=== PATIENT | male | born 1965 | race Hispanic/Latino ===

== ENCOUNTER 2018-01-24 06:04 | Emergency (ER) | payer BC, OTHER ==
[2018-01-24] MEDS ORDERED: COLCHICINE 0.6 MG TAB ONE ×2 (06:48→08:23)
[2018-01-24 06:54] LABS: BUN Blood Urea Nitrogen 14 mg/dL (6-20); Bicarbonate 27 mEq/L (21-31); Glomerular Filtration Rate > 90 mL/min (=/>90); Glucose Level 119 mg/dL (65-120); Sodium Level 139 mEq/L (135-145)
[2018-01-24 07:03] LABS: Absolute Lymphocytes (CBC) 2.1 K/uL (0.7-4.9); Absolute Monocytes 0.8 K/uL (0.1-1.3); Absolute Neutrophil 6.7 K/uL (1.8-8.0); Basophils % 0.4 % (0-1.3); Eosinophils % 1.1 % (0-4.4); Hematocrit 37.5 % (39.6-49.0); Lymphocytes % 21.4 % (15.3-44.8); MCH 29.4 pg (27.0-35.0); MCV 86.6 fL (80-100); MPV 11.1 fL (7.6-11.3); Monocytes % 8.6 % (3.3-12.3); RBC Red Blood Cell Count 4.33 M/uL (4.33-5.43)
[2018-01-24] MEDS ORDERED: INDOMETHACIN 25 MG CAP ONE (07:09)
--- NOTE | 2018-01-24 08:14 | ER ---
Nurse's Notes [facility] Name: Jabier Bright Age: 52 yrs Sex: Male : 1965 Arrival Date: 01/24/2018 Time: 06:07 Bed 7 Private MD: Diagnosis: Gout Presentation: 01/24 06:15 Presenting complaint: Patient states: "Yesterday I woke up with swelling on my elbow, ao but is was not bad and this morning it got worst. It getting red, swelling and painful.". Transition of care: patient was not received from another setting of care. Onset of symptoms was January 23, 2018 at 06:00. Care prior to arrival: None. 06:15 Method Of Arrival: Ambulatory ao 06:15 Acuity: GLENIS 4 ao Triage Assessment: :22 General: Appears in no apparent distress. comfortable, Behavior is calm, cooperative, ao appropriate for age. Pain: Complains of pain in right elbow. EENT: No signs and/or symptoms were reported regarding the EENT system. Neuro: Level of Consciousness is awake, alert, obeys commands, Oriented to person, place, time, Moves all extremities. Speech is normal, Facial symmetry appears normal. Cardiovascular: Capillary refill < 3 seconds Patient's skin is warm and dry. Respiratory: Airway is patent Respiratory effort is even, unlabored, Respiratory pattern is regular, symmetrical. GI: Abdomen is round. : No signs and/or symptoms were reported regarding the genitourinary system. Derm: Skin is normal, Skin temperature is warm. Musculoskeletal: Swelling present in right elbow. Injury Description: None reported. Historical: - Allergies: 06:21 No Known Allergies; ao - Home Meds: 06:21 lisinopril 10 mg Oral tab 1 tab once daily [Active]; ao - PMHx: 06:21 Hypertension; ao 06:25 Gout; ao - PSHx: 06:21 None; ao - Immunization history:: Adult Immunizations not up to date. - Social history:: Smoking status: Patient uses tobacco products, denies chronic smoking, but will smoke occasionally, Patient uses alcohol, Patient/guardian denies using street drugs. Screenin:22 Abuse screen: Denies threats or abuse. Denies injuries from another. Nutritional ao screening: No deficits noted. Tuberculosis screening: No symptoms or risk factors identified. Fall Risk None identified. Assessment: 06:36 General: See triage assessment. ao 07:20 Reassessment: Patient appears in no apparent distress at this time. No changes from sv previously documented assessment. Patient and/or family updated on plan of care and expected duration. Pain level reassessed. Patient is alert, oriented x 3, equal unlabored respirations, skin warm/dry/pink. Vital Signs: 06:18 BP 187 / 109; Pulse 97; Resp 18; Temp 98.0; Pulse Ox 95% on R/A; Weight 104.33 kg; ao Height 5 ft. 5 in. (165.10 cm) (R); Pain 3/10; 06:50 BP 168 / 104; Pulse 87; Resp 16; Pulse Ox 99% on R/A; Pain 3/10; ao 08:25 BP 176 / 89; Pulse 87; Resp 18; Temp 98.0; Pulse Ox 98% on R/A; Pain 3/10; sg 06:18 Body Mass Index 38.27 (104.33 kg, 165.10 cm) ao ED Course: 06:07 Patient arrived in ED. al2 06:16 Humble Ramos PA is PHCP. jr8 06:16 Francisco Holloway MD is Attending Physician. jr8 06:18 Triage completed. ao 06:18 Arm band placed on right wrist. Patient placed in an exam room, on a stretcher, on ao cardiac rehab nurse, on pulse oximetry, Patient notified of wait time. 06:22 Patient has correct armband on for positive identification. Pulse ox on. NIBP on. ao 06:31 Inserted saline lock: 20 gauge in left wrist, using aseptic technique. Blood collected. ao 07:08 Silva Simons, CONSUELO is Primary Nurse. tl1 07:56 Primary Nurse role handed off by Silva Simons RN sv 07:56 Marcelle Barrett RN is Primary Nurse. sv 08:25 No provider procedures requiring assistance completed. IV discontinued, intact, sg bleeding controlled, No redness/swelling at site. Pressure dressing applied. Administered Medications: 06:34 Drug: Colcrys 1.2 mg Route: PO; tl1 07:05 Follow up: Response: No adverse reaction; No change in condition tl1 06:52 Drug: Indomethacin 50 mg Route: PO; tl1 07:05 Follow up: Response: No adverse reaction; No change in condition tl1 08:07 Drug: Colcrys 0.6 mg Route: PO; sg Outcome: 08:14 Discharge ordered by MD. ramos 08:30 Patient left the ED. ss 10:25 Discharged to home ambulatory, with family. sg 10:25 Condition: good 10:25 Discharge instructions given to patient, Instructed on discharge instructions, follow up and referral plans. medication usage, safety practices, Demonstrated understanding of instructions, follow-up care, medications, Prescriptions given X 2. Signatures: Marcelle Barrett, RN CONSUELO Andrea Castillo RN RN sg Smirch, Shelby, RN RN ss Humble Ramos PA PA jr8 Silva Simons RN RN tl1 Ced Kelly RN RN Laurel Aguirre2 Corrections: (The following items were deleted from the chart) 06:20 06:18 BP 187 / 109; Pulse 97bpm; Resp 18bpm; Pulse Ox 95% RA; 104.33 kg; Height 5 ft. 5 ao in. Reported; BMI: 38.2; Pain 3/10; ao
--- NOTE | 2018-01-24 08:15 | EDPHYS ---
Physician Documentation [facility] Name: Jabier Bright Age: 52 yrs Sex: Male : 1965 Arrival Date: 01/24/2018 Time: 06:07 Bed 7 Private MD: ED Physician Francisco Holloway HPI: 01/24 06:34 This 52 yrs old Male presents to ER via Ambulatory with complaints of Elbow jr8 Injury, Arm Pain. 06:34 The patient or guardian complains of pain, swelling. The complaints affect the right jr8 elbow. Context: The problem was sustained at home. Onset: The symptoms/episode began/occurred acutely, yesterday. Treatment prior to arrival includes: no previous treatment. Modifying factors: The symptoms are alleviated by nothing. the symptoms are aggravated by movement. Associated signs and symptoms: The patient has no apparent associated signs or symptoms. Severity of symptoms: At their worst the symptoms were moderate, in the emergency department the symptoms are unchanged. It is unknown whether or not the patient has had similar symptoms in the past. The patient has not recently seen a physician. Patient stated that he elbow started to swell yesterday. Worse throughout night. Denies trauma to elbow. History of gout in past . Historical: - Allergies: 06:21 No Known Allergies; ao - Home Meds: 06:21 lisinopril 10 mg Oral tab 1 tab once daily [Active]; ao - PMHx: 06:21 Hypertension; ao 06:25 Gout; ao - PSHx: 06:21 None; ao - Immunization history:: Adult Immunizations not up to date. - Social history:: Smoking status: Patient uses tobacco products, denies chronic smoking, but will smoke occasionally, Patient uses alcohol, Patient/guardian denies using street drugs. ROS: 06:34 Eyes: Negative for injury, pain, redness, and discharge, ENT: Negative for injury, jr8 pain, and discharge, Neck: Negative for injury, pain, and swelling, Cardiovascular: Negative for chest pain, palpitations, and edema, Respiratory: Negative for shortness of breath, cough, wheezing, and pleuritic chest pain, Abdomen/GI: Negative for abdominal pain, nausea, vomiting, diarrhea, and constipation, Back: Negative for injury and pain, Skin: Negative for injury, rash, and discoloration, Neuro: Negative for headache, weakness, numbness, tingling, and seizure. 06:34 MS/extremity: Positive for erythema, pain, swelling, warmth, of the right elbow. Exam: 06:34 Cardiovascular: Regular rate and rhythm with a normal S1 and S2. No gallops, murmurs, jr8 or rubs. Normal PMI, no JVD. No pulse deficits. Respiratory: Lungs have equal breath sounds bilaterally, clear to auscultation and percussion. No rales, rhonchi or wheezes noted. No increased work of breathing, no retractions or nasal flaring. Skin: Warm, dry with normal turgor. Normal color with no rashes, no lesions, and no evidence of cellulitis. Neuro: Awake and alert, GCS 15, oriented to person, place, time, and situation. Cranial nerves II-XII grossly intact. Motor strength 5/5 in all extremities. Sensory grossly intact. Cerebellar exam normal. Normal gait. 06:34 Musculoskeletal/extremity: Extremities: grossly normal except: noted in the right elbow: Patient has swelling with mild erythema and warmth to right elbow. Can extend to almost 180 degrees. Can flex to about 45 degrees. Mild tenderness to elbow , Circulation is intact in all extremities. Sensation intact. Vital Signs: 06:18 BP 187 / 109; Pulse 97; Resp 18; Temp 98.0; Pulse Ox 95% on R/A; Weight 104.33 kg; ao Height 5 ft. 5 in. (165.10 cm) (R); Pain 3/10; 06:50 BP 168 / 104; Pulse 87; Resp 16; Pulse Ox 99% on R/A; Pain 3/10; ao 08:25 BP 176 / 89; Pulse 87; Resp 18; Temp 98.0; Pulse Ox 98% on R/A; Pain 3/10; sg 06:18 Body Mass Index 38.27 (104.33 kg, 165.10 cm) ao MDM: 06:16 Patient medically screened. 8 08:13 Data reviewed: vital signs, nurses notes, lab test result(s), and as a result, I will jr8 discharge patient. Data interpreted: Pulse oximetry: on room air is 99 %. Interpretation: normal. Counseling: I had a detailed discussion with the patient and/or guardian regarding: the historical points, exam findings, and any diagnostic results supporting the discharge/admit diagnosis, the presence of at least one elevated blood pressure reading (>120/80) during this emergency department visit, lab results, the need for outpatient follow up, a family practitioner, to return to the emergency department if symptoms worsen or persist or if there are any questions or concerns that arise at home. ED course: Patient feeling better. Pain decreased. More ROM in elbow. To f/u with PCP. Will send home on medication . 01/24 06:23 Order name: CBC with Diff jr8 01/24 06:23 Order name: Basic Metabolic Panel jr8 01/24 06:54 Order name: Basic Metabolic Panel; Complete Time: 06:59 EDMS 01/24 07:03 Order name: CBC with Automated Diff; Complete Time: 07:04 EDMS 01/24 06:23 Order name: IV; Complete Time: 06:30 jr8 Administered Medications: 06:34 Drug: Colcrys 1.2 mg Route: PO; tl1 07:05 Follow up: Response: No adverse reaction; No change in condition tl1 06:52 Drug: Indomethacin 50 mg Route: PO; tl1 07:05 Follow up: Response: No adverse reaction; No change in condition tl1 08:07 Drug: Colcrys 0.6 mg Route: PO; sg Disposition: 01/24/18 08:14 Discharged to Home. Impression: Gout. - Condition is Stable. - Discharge Instructions: Gout. - Prescriptions for indomethacin 50 mg Oral capsule - take 1 capsule by ORAL route 3 times per day for 5 days to stop as soon as swelling and pain subsides; 15 capsule. Colcrys 0.6 mg Oral tablet - take 1 tablet by ORAL route 2 times per day for 3 days; 6 tablet. - Work release form, Medication Reconciliation Form, Thank You Letter, Antibiotic Education, Prescription Opioid Use form. - Follow up: Private Physician; When: 2 - 3 days; Reason: Recheck today's complaints, Continuance of care, Re-evaluation by your physician. - Problem is new. - Symptoms have improved. - Notes: Do not start Colcrys until tomorrow morning 01/25/18 Drink lots of water Eat with Indomethacin Addendum: 01/28/2018 07:02 Co-signature as Attending Physician, Francisco Holloway MD I agree with the assessment and k dr plan of care. Signatures: Dispatcher [employer] EDVT Castillo, Andrea, RN RN sg Francisco Holloway MD MD [facility] Magaly Hawkins RN RN ss Humble Ramos PA PA 8 Silva Simons RN RN tl1 Ced Kelly RN RN ao
== END 2018-01-24 08:30 | disposition home or self-care (01) ==
LOC: ER 06:04
DX: Z72.0 Tobacco use; M10.9 Gout, unspecified; I10 Essential (primary) hypertension
CPT/HCPCS: 36415; 80048; 85025; 99284

== ENCOUNTER 2022-02-21 06:04 | Emergency (ER) | payer OTHER ==
[2022-02-21] MEDS ORDERED: ONDANSETRON 4 MG/2 ML VIAL ONE (06:35)
[2022-02-21] MEDS ORDERED: MORPHINE 4 MG/ML SYR ONE (06:35)
[2022-02-21] MEDS ORDERED: FAMOTIDINE 20 MG/2 ML VIAL IV ONE (06:35)
[2022-02-21 06:58] LABS: Absolute Lymphocytes (CBC) 2.6 K/uL (0.7-4.9); Hematocrit 39.2 % (39.6-49.0); Lymphocytes % 22.4 % (15.3-44.8); MPV 9.4 fL (7.6-11.3); RBC Red Blood Cell Count 4.39 M/uL (4.33-5.43)
[2022-02-21 07:13] LABS: Albumin 3.1 g/dL (3.4-5.0); Bilirubin Total 0.4 mg/dL (0.2-1.0); Potassium 3.4 mmol/L (3.5-5.1); Protein, Total 6.6 g/dL (6.4-8.2)
--- NOTE | 2022-02-21 07:36 | RAD REPORT ---
EXAM DESCRIPTION: CT - Angio Aorta For Dissection - 02/21/2022 7:13 am CLINICAL HISTORY: abdominal pain COMPARISON: None. TECHNIQUE: Dynamically enhanced 3 mm thick images of the chest, abdomen, and upper pelvis were obtai katrin during administration of approximately 150mL Isovue 370 IV contrast. Sagittal and coronal reconst ruction images were generated using MIP and reviewed. Exam utilizes a protocol to evaluate entire cou rse of the aorta. All CT scans are performed using dose optimization technique as appropriate and may include automated exposure control or mA/KV adjustment according to patient size. FINDINGS: Aorta is normal in diameter with no dissection or other acute aortic findings. Reconstruct ion images show no significant findings. Pulmonary arteries are normal as well. No cardiomegaly, pericardial thickening or pericardial effusio n. No mass or infiltrate in the lung parenchyma. No pleural thickening, pleural effusion or pneumothorax . No abnormal mediastinal or hilar mass or lymphadenopathy seen. No chest wall mass or abnormal axillar y lymphadenopathy. Celiac, SMA and renal arteries show no suspicious findings. Solid abdominal viscera and bowel show no significant findings. Liver appears borderline fatty infiltrated. A 22 millimeter exophytic homogene ous low-attenuation mass (31 HU) lower pole left kidney is most likely an incidental cyst. No mass o r abnormal lymphadenopathy. No free air, free fluid or inflammatory stranding. No urinary bladder abn ormality. Patient has an incidental fat only 4 centimeter diameter periumbilical hernia. No acute bone finding. Minimal endplate spurring changes are seen in the thoracic spine. Moderate deg enerative disc disease present at L5-S1. IMPRESSION: Negative CT scan of the aorta. No acute or significant CT chest finding. No acute CT abdomen or pelvis finding. Patient has a homogeneous low-density but non simple cyst exop hytic mass lower pole left kidney. This is almost certainly a benign cyst but can be monitored with o utpatient follow-up sonography or comparison to any prior CT imaging that may have been performed. Moderate severity L5-S1 level degenerative disc disease.
[2022-02-21] MEDS ORDERED: lisinopriL 10 MG TAB ONE (08:02)
[2022-02-21] MEDS ORDERED: MAGNES/ALUMIN/SIMET 30ML UCUP ONE (08:28)
[2022-02-21] MEDS ORDERED: LIDOCAINE VISCOUS 2% SOLN 15 ML UDC ONE (08:28)
--- NOTE | 2022-02-21 08:56 | EDPHYS ---
Physician Documentation [facility] Name: Jabier Bright Age: 56 yrs Sex: Male : 1965 Arrival Date: 02/21/2022 Time: 06:08 Bed 4 Private MD: ED Physician Tian Ac HPI: 02/21 07:46 This 56 yrs old Male presents to ER via Ambulatory with complaints of rn Abdominal Pain. 07:46 The patient presents with abdominal pain in the epigastric area. Onset: The rn symptoms/episode began/occurred yesterday. The symptoms do not radiate. Associated signs and symptoms: Pertinent positives: nausea, Pertinent negatives: blood in stools, chest pain, constipation, diarrhea, dysuria, fever, shortness of breath, vomiting blood. The symptoms are described as achy. Modifying factors: The symptoms are alleviated by nothing, the symptoms are aggravated by touching the area. Severity of pain: At its worst the pain was moderate in the emergency department the pain has improved. The patient has not experienced similar symptoms in the past. The patient has not recently seen a physician. Pt reports upper abd pain, assoc with nausea, began yesterday, got worse this AM Denies chest pain/sob/cough/vomiting/diarrhea. No blood in stool. Reports hasn't taken his lisinopril this AM because didn't eat. No headache. No focal neuro complaint.. Historical: - Allergies: 06:15 No Known Allergies; lg3 - Home Meds: 06:15 lisinopril 10 mg Oral tab 1 tab once daily [Active]; lg3 - PMHx: 06:15 Gout; Hypertension; lg3 - PSHx: 06:15 None; lg3 - Immunization history:: Client reports receiving the 2nd dose of the Covid vaccine, moderna X3. - Social history:: Smoking status: Patient reports the use of cigarette tobacco products, denies chronic smoking, but will smoke occasionally, Patient uses alcohol, occasionally. only on a social basis. - Family history:: not pertinent. - Hospitalizations: : No recent hospitalization is reported. ROS: 07:46 Constitutional: Negative for fever, chills, and weight loss, Eyes: Negative for injury, rn pain, redness, and discharge, Neck: Negative for injury, pain, and swelling, Cardiovascular: Negative for chest pain, palpitations, and edema, Respiratory: Negative for shortness of breath, cough, wheezing, and pleuritic chest pain, Abdomen/GI: + epigastric abd pain and nausea Back: Negative for injury and pain, : Negative for injury, bleeding, discharge, and swelling, MS/Extremity: Negative for injury and deformity, Skin: Negative for injury, rash, and discoloration, Neuro: Negative for headache, weakness, numbness, tingling, and seizure. Exam: 07:46 Constitutional: This is a well developed, well nourished patient who is awake, alert, rn and in no acute distress. Head/Face: Normocephalic, atraumatic. Eyes: Periorbital areas with no swelling, redness, or edema. Cardiovascular: Regular rate and rhythm. No pulse deficits. Respiratory: No increased work of breathing, no retractions or nasal flaring. Abdomen/GI: Soft, non-tender Skin: Warm, dry MS/ Extremity: Pulses equal, no cyanosis. Neuro: Awake and alert, GCS 15 08:03 ECG was reviewed by the Attending Physician. rn Vital Signs: 06:13 BP 219 / 111; Pulse 68; Resp 17 S; Temp 97.7(O); Pulse Ox 99% on R/A; Weight 100.7 kg lg3 (R); Height 5 ft. 6 in. (167.64 cm) (R); Pain 8/10; 07:29 BP 205 / 109; Pulse 60; Resp 18 S; Pulse Ox 99% on R/A; jd3 08:23 BP 208 / 94; Pulse 61; Resp 17 S; Pulse Ox 99% on R/A; jd3 08:51 BP 169 / 93; Pulse 67; Resp 18 S; Pulse Ox 98% on R/A; jd3 06:13 Body Mass Index 35.83 (100.70 kg, 167.64 cm) lg3 MDM: 07:14 Patient medically screened. rn 08:54 Differential diagnosis: AAA, bowel obstruction, cholecystitis, Cholelithiasis, rn diverticulitis, gastritis, gastroesophageal reflux disease, non-specific abd pain, pancreatitis, Peptic Ulcer Disease, Perf. Duodenal Ulcer, Perf. Gastric Ulcer. Data reviewed: vital signs, nurses notes, lab test result(s), EKG, radiologic studies, CT scan, and as a result, I will discharge patient. Counseling: I had a detailed discussion with the patient and/or guardian regarding: the historical points, exam findings, and any diagnostic results supporting the discharge/admit diagnosis, lab results, radiology results, the need for outpatient follow up, to return to the emergency department if symptoms worsen or persist or if there are any questions or concerns that arise at home. Response to treatment: the patient's symptoms have resolved after treatment, and as a result, I will discharge patient. Special discussion: Based on the patient's Hx, exam, and Dx evaluation, there is no indication for emergent surgery or inpatient Tx. It is understood by the patient/guardian that if the Sx's persist or worsen they need to return immediately for re-evaluation. I discussed with the patient/guardian in detail that at this point there is no indication for admission to the hospital. It is understood, however, that if the symptoms persist or worsen the patient needs to return immediately for re-evaluation. ED course: NO acute findings on CT imaging, pain resolved since arrival, BP improved with home lisinopril given here. Stable vitals. Will dc home with antacids and return precautions. ECG normal. Trop normal. . 08:56 Special discussion: I discussed with the patient the need to follow-up with the rn PCP/specialist for the noted incidental finding on X-ray/CT scanning. 02/21 06:25 Order name: CBC with Diff; Complete Time: 07:40 [facility] 02/21 06:25 Order name: CMP; Complete Time: 07:40 [facility] 02/21 06:25 Order name: Lipase; Complete Time: 07:40 [facility] 02/21 07:40 Order name: Troponin High Sensitivity; Complete Time: 08:03 rn 02/21 07:54 Order name: CREATININE WHOLE BLOOD; Complete Time: 08:03 EDNJ 02/21 06:25 Order name: IV Saline Lock; Complete Time: 06:46 [facility] 02/21 06:35 Order name: Angio Aorta For Dissection; Complete Time: 07:40 EDNJ 02/21 07:40 Order name: EKG; Complete Time: 07:41 rn 02/21 06:25 Order name: Labs collected and sent; Complete Time: 06:46 [facility] 02/21 07:40 Order name: EKG - Nurse/Tech; Complete Time: 07:56 rn EC:03 Rate is 60 beats/min. Rhythm is regular. QRS [place] is Normal. IN interval is normal. QRS rn interval is normal. QT interval is normal. No Q waves. T waves are Normal. No ST changes noted. Clinical impression: Normal ECG. Interpreted by me. Reviewed by me. Administered Medications: 06:45 Drug: morphine 4 mg Route: IVP; Site: left antecubital; vc1 07:45 Follow up: Response: No adverse reaction; RASS: Alert and Calm (0) jd3 06:45 Drug: Zofran (Ondansetron) 4 mg Route: IVP; Site: left antecubital; vc1 07:45 Follow up: Response: No adverse reaction jd3 06:45 Drug: Pepcid (famotidine) 20 mg Route: IVP; Site: left antecubital; vc1 07:45 Follow up: Response: No adverse reaction jd3 08:00 Drug: Lisinopril 10 mg Route: PO; jd3 08:31 Follow up: Response: No adverse reaction jd3 08:30 Drug: GI Cocktail without - (Maalox Suspension 30 ml, Lidocaine Liquid 2 % 15 jd3 ml) Route: PO; 09:20 Follow up: Response: No adverse reaction jd3 Disposition Summary: 02/21/22 08:56 Discharge Ordered Location: Home rn Problem: new rn Symptoms: have improved rn Condition: Stable rn Diagnosis - Upper abdominal pain, unspecified rn - Essential (primary) hypertension rn Followup: rn - With: Dwayne Dang MD - When: As needed - Reason: Recheck today's complaints, Re-evaluation by your physician Discharge Instructions: - Discharge Summary Sheet rn - Abdominal Pain, Adult rn - Hypertension, Adult rn Forms: - Medication Reconciliation Form rn - Thank You Letter rn - Antibiotic help desk internship - Prescription Opioid Use rn - Work release form jd3 Prescriptions: - Protonix 40 mg Oral Tablet - take 1 tablet by ORAL route once daily; 30 tablet; Refills: 0, Product rn Selection Permitted Signatures: Dispatcher [employer] EDFrancisco Graves MD MD kdr Nieto, Roman, MD MD rn Davies, Jonathon, RN RN jd3 Luanne Ramsey, RN RN lg3 Bri Richard RN RN vc1 Corrections: (The following items were deleted from the chart) 06:35 06:28 Chest Angio+CT.RAD.BRZ ordered. EDMS EDMS
--- NOTE | 2022-02-21 08:56 | ER ---
Nurse's Notes [facility] Name: Jabier Bright Age: 56 yrs Sex: Male : 1965 Arrival Date: 02/21/2022 Time: 06:08 Bed 4 Private MD: Diagnosis: Upper abdominal pain, unspecified;Essential (primary) hypertension Presentation: 02/21 06:13 Chief complaint: Patient states: upper abdominal pain starting last night and getting lg3 worse. nausea and dry heaving but not vomiting at this point. Coronavirus screen: Client denies travel out of the [place] in the last 14 days. At this time, the client does not indicate any symptoms associated with coronavirus-19. Ebola Screen: No symptoms or risks identified at this time. Initial Sepsis Screen: Does the patient meet any 2 criteria? No. Patient's initial sepsis screen is negative. Does the patient have a suspected source of infection? No. Patient's initial sepsis screen is negative. Risk Assessment: Do you want to hurt yourself or someone else? Patient reports no desire to harm self or others. Onset of symptoms was February 20, 2022. 06:13 Method Of Arrival: Ambulatory lg3 06:13 Acuity: GLENIS 3 lg3 Triage Assessment: 06:15 General: Appears in no apparent distress. uncomfortable, Behavior is calm, cooperative. lg3 Pain: Complains of pain in epigastric area. EENT: No deficits noted. No signs and/or symptoms were reported regarding the EENT system. Neuro: No deficits noted. Level of Consciousness is awake, alert, obeys commands, Oriented to person, place, time, situation. Cardiovascular: No deficits noted. Denies chest pain, shortness of breath. Respiratory: No deficits noted. Airway is patent Trachea midline Respiratory effort is even, unlabored, Respiratory pattern is regular, symmetrical. GI: Reports upper abdominal pain, epigastric pain, nausea. : No deficits noted. No signs and/or symptoms were reported regarding the genitourinary system. Derm: No deficits noted. No signs and/or symptoms reported regarding the dermatologic system. Skin is intact, is healthy with good turgor, Skin is diaphoretic, Skin is pink, warm \T\ dry. Musculoskeletal: No deficits noted. No signs and/or symptoms reported regarding the musculoskeletal system. Circulation, motion, and sensation intact. Range of motion: intact in all extremities. Historical: - Allergies: 06:15 No Known Allergies; lg3 - Home Meds: 06:15 lisinopril 10 mg Oral tab 1 tab once daily [Active]; lg3 - PMHx: 06:15 Gout; Hypertension; lg3 - PSHx: 06:15 None; lg3 - Immunization history:: Client reports receiving the 2nd dose of the Covid vaccine, moderna X3. - Social history:: Smoking status: Patient reports the use of cigarette tobacco products, denies chronic smoking, but will smoke occasionally, Patient uses alcohol, occasionally. only on a social basis. - Family history:: not pertinent. - Hospitalizations: : No recent hospitalization is reported. Screenin:46 Abuse screen: Denies threats or abuse. Nutritional screening: No deficits noted. ll3 Tuberculosis screening: No symptoms or risk factors identified. Fall Risk No fall in past 12 months (0 pts). No secondary diagnosis (0 pts). IV access (20 points). Ambulatory Aid- None/Bed Rest/Nurse Assist (0 pts). Gait- Normal/Bed Rest/Wheelchair (0 pts) Mental Status- Oriented to own ability (0 pts). Total Gomez Fall Scale indicates No Risk (0-24 pts). Assessment: 06:46 General: Appears uncomfortable, Behavior is calm, cooperative. Pain: Complains of pain ll3 in chest and epigastric area Pain currently is 10 out of 10 on a pain scale. Pain began 1 day ago. Is continuous. Neuro: Level of Consciousness is awake, alert, obeys commands, Oriented to person, place, time, situation. Cardiovascular: Patient's skin is warm and dry. Rhythm is sinus bradycardia. Respiratory: Respiratory effort is even, unlabored, Respiratory pattern is regular, symmetrical. Derm: Skin is diaphoretic, Skin is normal. 07:26 General: Appears in no apparent distress. comfortable, Behavior is calm, cooperative, jd3 appropriate for age, Reports stomach pain feeling better. Pain: Denies pain. Neuro: Level of Consciousness is awake, alert, obeys commands, Oriented to person, place, time, situation. Cardiovascular: Denies chest pain, Capillary refill < 3 seconds Patient's skin is warm and dry. Rhythm is regular. Respiratory: Airway is patent Respiratory effort is even, unlabored, Respiratory pattern is regular, symmetrical, Denies cough, shortness of breath. GI: Abdomen is round non-distended, Abd is soft and non tender X 4 quads. Reports upper abdominal pain this morning. relieved after being medicated. : No signs and/or symptoms were reported regarding the genitourinary system. EENT: No signs and/or symptoms were reported regarding the EENT system. Derm: Skin is intact, Skin is dry, Skin is normal, Skin temperature is warm. Musculoskeletal: Circulation, motion, and sensation intact. Range of motion: intact in all extremities. 08:22 Reassessment: Patient appears in no apparent distress at this time. Patient and/or jd3 family updated on plan of care and expected duration. Pain level reassessed. Patient is alert, oriented x 3, equal unlabored respirations, skin warm/dry/pink. Patient states feeling better. 08:51 Reassessment: Patient appears in no apparent distress at this time. Patient and/or jd3 family updated on plan of care and expected duration. Pain level reassessed. Patient is alert, oriented x 3, equal unlabored respirations, skin warm/dry/pink. Patient denies pain at this time. Patient states feeling better. 09:18 Reassessment: Patient appears in no apparent distress at this time. Patient and/or jd3 family updated on plan of care and expected duration. Pain level reassessed. Patient is alert, oriented x 3, equal unlabored respirations, skin warm/dry/pink. reported understanding of discharge instructions, even and steady gait upon discharge. Vital Signs: 06:13 BP 219 / 111; Pulse 68; Resp 17 S; Temp 97.7(O); Pulse Ox 99% on R/A; Weight 100.7 kg lg3 (R); Height 5 ft. 6 in. (167.64 cm) (R); Pain 8/10; 07:29 BP 205 / 109; Pulse 60; Resp 18 S; Pulse Ox 99% on R/A; jd3 08:23 BP 208 / 94; Pulse 61; Resp 17 S; Pulse Ox 99% on R/A; jd3 08:51 BP 169 / 93; Pulse 67; Resp 18 S; Pulse Ox 98% on R/A; jd3 06:13 Body Mass Index 35.83 (100.70 kg, 167.64 cm) lg3 ED Course: 06:08 Patient arrived in ED. ag3 06:15 Triage completed. lg3 06:15 Arm band placed on right wrist. lg3 06:24 Francisco Holloway MD is Attending Physician. kdr 06:46 Collins Fernández, RN is Primary Nurse. ll3 06:46 Patient has correct armband on for positive identification. Bed in low position. Call ll3 light in reach. Side rails up X 1. Adult w/ patient. business info consultant on. Pulse ox on. NIBP on. 06:46 Inserted saline lock: 22 gauge in left antecubital area, using aseptic technique. Blood vc1 collected. 07:14 Attending Physician role handed off by Francisco Holloway MD rn 07:14 Tian Ac MD is Attending Physician. rn 07:15 Angio Aorta For Dissection In Process Unspecified. EDMS 07:26 Primary Nurse role handed off by Collins Fernández RN jd3 07:26 Florian Monreal RN is Primary Nurse. jd3 08:56 Dwayne Dang MD is Referral Physician. rn 09:18 No provider procedures requiring assistance completed. IV discontinued, intact, jd3 bleeding controlled, No redness/swelling at site. Pressure dressing applied. Administered Medications: 06:45 Drug: morphine 4 mg Route: IVP; Site: left antecubital; vc1 07:45 Follow up: Response: No adverse reaction; RASS: Alert and Calm (0) jd3 06:45 Drug: Zofran (Ondansetron) 4 mg Route: IVP; Site: left antecubital; vc1 07:45 Follow up: Response: No adverse reaction jd3 06:45 Drug: Pepcid (famotidine) 20 mg Route: IVP; Site: left antecubital; vc1 07:45 Follow up: Response: No adverse reaction jd3 08:00 Drug: Lisinopril 10 mg Route: PO; jd3 08:31 Follow up: Response: No adverse reaction jd3 08:30 Drug: GI Cocktail without - (Maalox Suspension 30 ml, Lidocaine Liquid 2 % 15 jd3 ml) Route: PO; 09:20 Follow up: Response: No adverse reaction jd3 Outcome: 08:56 Discharge ordered by . rn 09:19 Discharged to home ambulatory, with family. jd3 09:19 Condition: stable 09:19 Discharge instructions given to patient, family, Instructed on discharge instructions, follow up and referral plans. medication usage, Demonstrated understanding of instructions, follow-up care, medications, Prescriptions given X 1. 09:19 Patient left the ED. jd3 Signatures: Dispatcher [employer] EDMS Francisco Holloway MD MD kdr Nieto, Roman, MD MD rn Davies, Jonathon, RN RN jd3 Keke Cisneros3 Luanne Ramsey RN RN lg3 Collins Fernández RN RN ll3 Bri Richard RN RN vc1
[2022-02-21 09:26] VITALS: TEMP 97.7
[2022-02-21 09:30] VITALS: BP 169/93; O2SAT 98
--- NOTE | 2022-02-22 09:36 | EKG ---
Test Date: 2022-02-21 Test Time: 06:26:01 Connie Scratcher: RE MEASUREMENT RESULTS: Intervals: Rate: 52 MD: 158 QRSD: 78 QT: 432 QTc: 401 [place]: P: 50 MD: 158 QRS: 41 T: 56 INTERPRETIVE STATEMENTS: Sinus bradycardia Otherwise normal ECG Compared to ECG 02/21/2022 06:24:43 No significant changes Electronically Signed On 02-22-22 09:32:07 CDT by Davie Orta
--- NOTE | 2022-02-23 13:01 | EKG ---
Test Date: 2022-02-21 Test Time: 07:52:06 Trim Mounter: JANETTE MEASUREMENT RESULTS: Intervals: Rate: 60 VT: 158 QRSD: 80 QT: 410 QTc: 410 Page: P: 57 VT: 158 QRS: 44 T: 43 INTERPRETIVE STATEMENTS: Normal sinus rhythm with sinus arrhythmia Normal ECG Electronically Signed On 02-23-22 12:57:54 CDT by Davie Orta
== END 2022-02-21 09:19 | disposition home or self-care (01) ==
LOC: ER 06:04
DX: R10.10 Upper abdominal pain, unspecified (principal); I10 Essential (primary) hypertension
CPT/HCPCS: 93005 ×3; 85025; 36415; 82565; 84484; 83690; 80053; 71275; 74175; 96375; 96374; 99284; Q9967; J2405; J3490

== ENCOUNTER 2022-07-11 15:16 | Emergency (ER) | payer OTHER ==
--- OUTSIDE RECORDS SUMMARY | 2022-07-11 15:18 | XMS REPORT | Continuity of Care Document ---
:1965 Author Organization [facility] t Address [address] [place] [address] Care Team Providers Name Role Phone Unavailable Unavailable Unavailable Problems This patient has no known problems. Allergies, Adverse Reactions, Alerts This patient has no known allergies or adverse reactions. Medications This patient has no known medications. Procedures This patient has no known procedures. Results Test Description Test Time Test Comments Results Result Comments Source OCCULT BLD,FECAL,IMMUNOASSAY DIAG 2022-05-25 16:08:46 Test Item Value Reference Range Interpretation Comme nts OCCULT BLD, FECAL (test code NEGATIVE NEGATIVE Note: Specimen received in an = [id number]) collect ion system. Results and details of analysis reviewed by VALERIE REYNAGA M.D. UNLESS OTHERWISE INDIC ATED, ALL TESTING PERFORMED [facility], [place] [address] 4 PURCHASING ANALYST: YAYA DIOP M.D. CLIA NUMBER [id number] CAP ACCREDITATION N O. [id number] COMPREHENSIVE METABOLIC [id number] 02:04:03 Test Item Value Reference Range Interpretation Comments GLUCOSE (test code = 121 MG/DL 70-99 H 2216) BUN (test code = 22 MG/DL 6-20 H 2207) CREATININE (test 1.46 MG/DL 0.80-1.40 H code = 2214) eGFR (2020 CKD-EPI) 55 ML/MIN/1.73 >60 L (test code = 18428) CALC BUN/CREAT (test 15 RATIO 6-28 code = 2235) SODIUM (test code = 142 MEQ/L [phone]) POTASSIUM (test code 4.4 MEQ/L 3.5-5.4 = 2228) CHLORIDE (test code 106 MEQ/L 95-107 = 2215) CARBON DIOXIDE (test 20 MEQ/L 19-31 code = 2206) CALCIUM (test code = 9.4 MG/DL 8.5-10.5 2208) PROTEIN, TOTAL (test 7.0 G/DL 6.1-8.3 code = 2229) ALBUMIN (test code = 4.3 G/DL 3.5-5.2 2200) CALC GLOBULIN (test 2.7 G/DL 1.9-3.7 code = 2240) CALC A/G RATIO (test 1.6 RATIO 1.0-2.6 code = 2234) BILIRUBIN, TOTAL 0.5 MG/DL See_Comment [Automated message] (test code = 2207) The syste m which generated this result transmit tru reference range : <=1.2. The refe rence range was not u sed to interpret th is result as normal/abnormal . ALKALINE PHOSPHATASE 74 U/L 40-123 (test code = 2204) AST (test code = 33 U/L 9-50 2217) ALT (test code = 55 U/L 5-50 H 2218) LIPID [id number] 02:04:03 Test Item Value Reference Range Interpretation Comments CHOLESTEROL (test 180 MG/DL <200 code = 2210) TRIGLYCERIDES (test 277 MG/DL <150 H code = 2232) HDL CHOLESTEROL (test 56 MG/DL >39 code = 2220) CALC LDL CHOL (test 88 MG/DL <100 NOTE: C ALCULATED LDL code = 2237) IS BASED ON JOVANNY-MCFARLANE METHOD WHICHINCLUDES ADJUSTABLE TRIGLYCERIDE:VL DL CHOLESTEROL RAT IO.THIS FACTOR VARIES B Y MEASURED TRIGLY CERIDE AND NON-HDLCHOL ESTEROL CONCENTRATIONS WITH INCREASED CALCU LATED LDL SEENIN HIGH ER TRIGLYCERIDE OR LOWER NON-HDL SPECIME NS. FOR MOREINFORMATION , SEE CLIENT ANNOUNCE MENT AT [email or web address] RISK RATIO LDL/HDL 1.57 RATIO <3.55 UNLESS OTHERWISE (test code = 2238) INDICATED , ALL TESTING PERFORMED [facility], [address] [place] [place] [address] [facility] DIRECTOR: YAYA DIOP M.D. CLIA NUMBER [id number] CAP ACCREDITATION N O. [id number]
[2022-07-11 15:52] LABS: Absolute Lymphocytes (CBC) 1.4 K/uL (0.7-4.9); Hematocrit 36.1 % (39.6-49.0); Lymphocytes % 18.6 % (15.3-44.8); MCV 91.8 fL (80-100); MPV 10.2 fL (7.6-11.3); RBC Red Blood Cell Count 3.93 M/uL (4.33-5.43)
[2022-07-11 16:03] LABS: Protime INR 1.05
[2022-07-11 16:13] LABS: Magnesium 2.2 mg/dL (1.8-2.4); Potassium 3.6 mmol/L (3.5-5.1); Troponin High Sensitivity 4.8 pg/mL (<58.9)
[2022-07-11] MEDS ORDERED: ACETAMINOPHEN 500 MG TAB ONE (18:02)
--- NOTE | 2022-07-11 18:24 | RAD REPORT ---
EXAM DESCRIPTION: RAD - Knee Right 3 View - 07/11/2022 6:17 pm CLINICAL HISTORY: Right knee pain FINDINGS: No fracture or dislocation is seen. Moderate narrowing involves the medial compartment with small osteophytes. Patellofemoral compartment also involved
--- NOTE | 2022-07-11 18:25 | RAD REPORT ---
EXAM DESCRIPTION: RAD - Knee Left 3 View - 07/11/2022 6:17 pm CLINICAL HISTORY: Left knee pain FINDINGS: No fracture or dislocation is seen. Moderate to marked osteoarthritis medial compartment consisting joint space narrowing and osteophytes
--- NOTE | 2022-07-11 18:31 | ER ---
Nurse's Notes [facility] Name: Jabier Bright Age: 56 yrs Sex: Male : 1965 Arrival Date: 07/11/2022 Time: 15:17 Bed Treatment Private MD: Diagnosis: Pain in left knee;Pain in right knee;Hypertensive heart disease without heart failure Presentation: 07/11 15:17 Chief complaint: EMS states: c/o nausea whiel at work, took his BP and it was elevated, iw pt no longer nauseated , denies h/a, dizziness or blurry vision , last BP was 160/92, has hx of hypertension and takes lisinopril. Onset of symptoms was July 11, 2022. 15:17 Method Of Arrival: EMS: [facility] iw 15:17 Acuity: GLENIS 3 iw 15:27 Coronavirus screen: At this time, the client does not indicate any symptoms associated aa5 with coronavirus-19. Ebola Screen: No symptoms or risks identified at this time. Initial Sepsis Screen: Does the patient meet any 2 criteria? No. Patient's initial sepsis screen is negative. Does the patient have a suspected source of infection? No. Patient's initial sepsis screen is negative. Risk Assessment: Do you want to hurt yourself or someone else? Patient reports no desire to harm self or others. Historical: - Allergies: 15:19 No Known Allergies; iw - Home Meds: 15:19 lisinopril 10 mg Oral tab 1 tab once daily [Active]; iw - PMHx: 15:19 Gout; Hypertension; iw - Immunization history:: Adult Immunizations unknown. - Social history:: Smoking status: unknown. Screenin:55 Abuse screen: Denies threats or abuse. Nutritional screening: No deficits noted. em6 Tuberculosis screening: No symptoms or risk factors identified. Fall Risk IV access (20 points). Mental Status- Oriented to own ability (0 pts). Total Gomez Fall Scale indicates No Risk (0-24 pts). Assessment: 17:55 General: Appears in no apparent distress. comfortable, Behavior is calm, cooperative. em6 Pain: Complains of pain in left knee and right knee Pain does not radiate. Pain currently is 10 out of 10 on a pain scale. Quality of pain is described as throbbing, stinging. Neuro: Henry Agitation-Sedation Scale (RASS): 0 - Alert and Calm Level of Consciousness is awake, alert, obeys commands, Oriented to person, place, time, situation. Neuro: Denies headache. Cardiovascular: Heart tones present Patient's skin is warm and dry. Respiratory: Airway is patent Respiratory effort is even, unlabored, Respiratory pattern is regular, symmetrical. GI: No signs and/or symptoms were reported involving the gastrointestinal system. GI: No signs and/or symptoms were reported involving the gastrointestinal system. : No signs and/or symptoms were reported regarding the genitourinary system. EENT: No signs and/or symptoms were reported regarding the EENT system. Derm: No signs and/or symptoms reported regarding the dermatologic system. Musculoskeletal: Circulation, motion, and sensation intact. Range of motion: intact in all extremities. Vital Signs: 15:27 BP 176 / 97; Pulse 91; Resp 18 S; Temp 99.0(TE); Pulse Ox 97% on R/A; Weight 104.33 kg aa5 (R); Height 5 ft. 6 in. (167.64 cm) (R); 18:04 BP 177 / 103; Pulse 74; Resp 18; Pulse Ox 100% on R/A; em6 15:27 Body Mass Index 37.12 (104.33 kg, 167.64 cm) aa5 ED Course: 15:17 Patient arrived in ED. rg4 15:17 Shahid Bergeron PA is PHCP. cp 15:17 Shahid Zhang MD is Attending Physician. cp 15:19 Triage completed. iw 15:20 Arm band placed on. iw 15:39 Initial lab(s) drawn, by me, sent to lab. Inserted saline lock: 20 gauge in left aa5 antecubital area, using aseptic technique. Blood collected. 15:43 EKG completed in triage. Results shown to . aa5 17:55 Bed in low position. Call light in reach. Side rails up X2. em6 18:19 XRAY Knee RIGHT 3 view In Process Unspecified. EDMS 18:19 XRAY Knee LEFT 3 view In Process Unspecified. EDMS 18:30 Kurt Rivera MD is Referral Physician. cp 18:42 No provider procedures requiring assistance completed. IV discontinued, intact, em6 bleeding controlled, No redness/swelling at site. Pressure dressing applied. Administered Medications: 18:00 Drug: Tylenol 1000 mg Route: PO; em6 18:41 Follow up: Response: No adverse reaction em6 Medication: 18:09 VIS not applicable for this client. em6 Outcome: 18:31 Discharge ordered by . paula 18:42 Discharged to home ambulatory. em6 18:42 Condition: stable 18:42 Discharge instructions given to patient, Instructed on discharge instructions, follow up and referral plans. medication usage, Demonstrated understanding of instructions, follow-up care, medications, Prescriptions given X 1. 18:44 Patient left the ED. em6 Signatures: Dispatcher [employer] EDMS Marcia Malcolm RN CONSUELO iw Dinah Zhong RN RN aa5 Shahid Begreron PA PA cp Garcia, Rubi 4 Danni Jenkins RN RN em6 Corrections: (The following items were deleted from the chart) 15:30 15:27 Pulse 91bpm; Resp 18bpm; Spontaneous; Pulse Ox 97% RA; Temp 99.0F Temporal; aa5 104.33 kg Reported; aa5
--- NOTE | 2022-07-11 18:31 | EDPHYS ---
Physician Documentation [facility] Name: Jabier Bright Age: 56 yrs Sex: Male : 1965 Arrival Date: 07/11/2022 Time: 15:17 Bed Treatment Private MD: ED Physician Shahid Zhang HPI: 07/11 15:35 This 56 yrs old Male presents to ER via EMS with complaints of High Blood cp Pressure. 15:35 The patient has elevated blood pressure and discovered this while at work. cp 15:35 Onset: The symptoms/episode began/occurred today. Associated signs and symptoms: cp Pertinent positives: nausea, Pertinent negatives: chest pain, dizziness, headache, vomiting, weakness. Severity of symptoms: in the emergency department the blood pressure is are actually worse, 176 mm Hg. Patient with history of htn. Takes prescribed Lisinopril. Reports while at work today, started having nausea. Checked blood pressure and noticed it was elevated. Transported to ED by EMS. Denies chest pain, vomiting, abdominal pain, headache. Patient c/o bilateral knee pain for past 6 months. Historical: - Allergies: 15:19 No Known Allergies; iw - Home Meds: 15:19 lisinopril 10 mg Oral tab 1 tab once daily [Active]; iw - PMHx: 15:19 Gout; Hypertension; iw - Immunization history:: Adult Immunizations unknown. - Social history:: Smoking status: unknown. ROS: 15:40 Constitutional: Negative for body aches, chills, fever, poor PO intake. cp 15:40 Eyes: Negative for injury, pain, redness, and discharge. cp 15:40 ENT: Negative for drainage from ear(s), ear pain, sore throat, difficulty swallowing, difficulty handling secretions. 15:40 Cardiovascular: Negative for chest pain, edema, palpitations. 15:40 Respiratory: Negative for cough, shortness of breath, wheezing. 15:40 Abdomen/GI: Positive for nausea, Negative for abdominal pain, vomiting, diarrhea, constipation. 15:40 Back: Negative for pain at rest, pain with movement. 15:40 Neuro: Negative for altered mental status, dizziness, headache, syncope, weakness. 15:40 All other systems are negative. Exam: 15:45 ECG was reviewed by the Attending Physician. cp 15:48 Constitutional: The patient appears in no acute distress, alert, awake, cp non-diaphoretic, non-toxic, well developed, well nourished, overweight 15:48 Head/Face: Normocephalic, atraumatic. cp 15:48 Eyes: Periorbital structures: appear normal, Conjunctiva: normal, no exudate, no injection, Sclera: no appreciated abnormality, Lids and lashes: appear normal, bilaterally. 15:48 ENT: External ear(s): are unremarkable, Nose: is normal, Mouth: Lips: moist, Oral mucosa: pink and intact, moist, Posterior pharynx: Airway: no evidence of obstruction, patent. 15:48 Neck: ROM/movement: is normal, is supple, without pain, no range of motions limitations, no nuchal rigidity. 15:48 Chest/axilla: Inspection: normal, Palpation: is normal, no crepitus, no tenderness. 15:48 Cardiovascular: Rate: normal, Rhythm: regular, Edema: is not appreciated, JVD: is not appreciated. 15:48 Respiratory: the patient does not display signs of respiratory distress, Respirations: normal, no use of accessory muscles, no retractions, labored breathing, is not present, Breath sounds: are clear throughout, no decreased breath sounds, no stridor, no wheezing. 15:48 Abdomen/GI: Inspection: abdomen appears normal, Bowel sounds: active, all quadrants, Palpation: abdomen is soft and non-tender, in all quadrants. 15:48 Back: pain, is absent, ROM is normal. 15:48 Neuro: Orientation: to person, place \T\ time. Mentation: is normal, Cerebellar function: is grossly normal, Motor: moves all fours, strength is normal, Sensation: is normal. 15:48 Musculoskeletal/extremity: Extremities: grossly normal except: noted in the right knee cp and left knee: pain, tenderness, There is no evidence of decreased ROM, deformity, ROM: full passive range of motion, in the right knee and left knee. Vital Signs: 15:27 BP 176 / 97; Pulse 91; Resp 18 S; Temp 99.0(TE); Pulse Ox 97% on R/A; Weight 104.33 kg aa5 (R); Height 5 ft. 6 in. (167.64 cm) (R); 18:04 BP 177 / 103; Pulse 74; Resp 18; Pulse Ox 100% on R/A; em6 15:27 Body Mass Index 37.12 (104.33 kg, 167.64 cm) aa5 MDM: 16:00 Differential diagnosis: hypertensive crisis, Malignant HTN, CVA, intracerebral cp hemorrhage. 17:30 Patient medically screened. 18:30 Data reviewed: vital signs, nurses notes, lab test result(s), EKG, radiologic studies, cp plain films, and as a result, I will discharge patient. 18:30 Test interpretation: by ED physician or midlevel provider: ECG, plain radiologic cp studies. 18:31 Counseling: I had a detailed discussion with the patient and/or guardian regarding: the cp historical points, exam findings, and any diagnostic results supporting the discharge/admit diagnosis, the presence of at least one elevated blood pressure reading (>120/80) during this emergency department visit, lab results, radiology results, the need for outpatient follow up, for definitive care, a family practitioner, a orthopedic surgeon, to return to the emergency department if symptoms worsen or persist or if there are any questions or concerns that arise at home. 18:31 ED course: VSS. Discussed continued elevated blood pressure and need for continued cp monitoring and f/u with pcp. Will discharge to home for continued monitoring. 07/11 15:32 Order name: Basic Metabolic Panel; Complete Time: 17:19 07/11 17:19 Interpretation: Normal except: CL 108; GLUC 138; GFR 81. 07/11 15:32 Order name: CBC with Diff; Complete Time: 17:19 07/11 17:20 Interpretation: Normal except: RBC 3.93; HGB 12.2; HCT 36.1; CATHY% 73.9. 07/11 15:32 Order name: Magnesium; Complete Time: 17:19 07/11 15:32 Order name: PT-INR; Complete Time: 17:19 07/11 15:32 Order name: Troponin HS; Complete Time: 17:19 07/11 17:20 Interpretation: Reviewed. 07/11 17:36 Order name: XRAY Knee RIGHT 3 view; Complete Time: 18:29 07/11 18:29 Interpretation: Report reviewed. 07/11 15:32 Order name: EKG; Complete Time: 15:33 07/11 15:32 Order name: EKG - Nurse/Tech; Complete Time: 15:38 cp 07/11 15:32 Order name: IV Saline Lock; Complete Time: 15:38 07/11 15:32 Order name: Labs collected and sent; Complete Time: 15:38 07/11 17:36 Order name: XRAY Knee LEFT 3 view; Complete Time: 18:29 07/11 18:29 Interpretation: Report reviewed. 07/11 17:56 Order name: Vital Signs: please update to include blood pressure; Complete Time: 18:05 EC:45 Rate is 84 beats/min. Rhythm is regular. VT interval is normal. QRS interval is normal. cp QT interval is normal. T waves are Inverted in lead aVR. Interpreted by me. Reviewed by me. Administered Medications: 18:00 Drug: Tylenol 1000 mg Route: PO; em6 18:41 Follow up: Response: No adverse reaction em6 Disposition Summary: 07/11/22 18:31 Discharge Ordered Location: Home cp Problem: new cp Symptoms: are unchanged cp Condition: Stable cp Diagnosis - Pain in left knee cp - Pain in right knee cp - Hypertensive heart disease without heart failure cp Followup: cp - With: Private Physician - When: 1 - 2 days - Reason: elevated blood pressure Followup: cp - With: Kurt Rivera MD - When: 2 - 3 days - Reason: knee pain Discharge Instructions: - Discharge Summary Sheet cp - Hypertension, Adult cp - Aspirin and Your Heart cp - Form - Blood Pressure Record Sheet cp - How to Take Your Blood Pressure cp - Arthritis, [id number] cp - Exercises for Chronic Knee Pain cp - Chronic Knee Pain, Adult cp Forms: - Medication Reconciliation Form cp - Thank You Letter cp - Antibiotic Education cp - Prescription Opioid Use cp Prescriptions: - Mobic 7.5 mg Oral Tablet - take 1 tablet by ORAL route once daily take with food; 20 tablet; Refills: 0, cp Product Selection Permitted Signatures: Dispatcher [employer] EDMS Marcia Malcolm RN RN Shahid Moreau PA PA cp Danni Jenkins RN RN em6 Corrections: (The following items were deleted from the chart) 07/12 16:25 07/11 15:35 Patient with history of htn. Takes prescribed Lisinopril. Reports while at work today, started having nausea. Checked blood pressure and noticed it was elevated. Transported to ED by EMS. Denies chest pain, vomiting, abdominal pain, headache. cp
[2022-07-11 20:46] VITALS: TEMP 99
[2022-07-11 20:48] VITALS: BP 177/103; O2SAT 100
--- NOTE | 2022-07-12 15:39 | EKG ---
Test Date: 2022-07-11 Test Time: 15:45:03 Renal Dietitian: GAYATRI MEASUREMENT RESULTS: Intervals: Rate: 84 CA: 156 QRSD: 76 QT: 376 QTc: 444 [place]: P: 38 CA: 156 QRS: 35 T: 39 INTERPRETIVE STATEMENTS: Normal sinus rhythm Normal ECG Compared to ECG 02/21/2022 07:52:06 Sinus arrhythmia no longer present Electronically Signed On 07-12-22 15:38:35 CDT by Lebron Espino
== END 2022-07-11 18:44 | disposition home or self-care (01) ==
LOC: ER 15:16
DX: I11.9 Hypertensive heart disease without heart failure (principal); M25.562 Pain in left knee; M25.561 Pain in right knee; I10 Essential (primary) hypertension
CPT/HCPCS: 36415; 80048; 83735; 84484; 85025; 85610; 93005; 99284

== ENCOUNTER 2023-04-29 21:49 | Emergency (ER) | payer OTHER ==
--- OUTSIDE RECORDS SUMMARY | 2023-04-29 21:54 | XMS REPORT | Continuity of Care Document ---
:1965 Author Organization [facility] t Address [address] [place] [address] [place] [id number] Care Team Providers Name Role Phone JESÚS Cantu [facility], [facility] Primary Care P hysician Unavailable Nasir Mims Attending Clinician Unavailable BENEDICT HURTADO Attending Clinician Unavailable DEENA VELASQUEZ Attending Clinician Unavailable Benedict Smith Attending Clinician Deena Velasquez MD Attending Clinician Lab, Ang - Db Attending Clinician Unavailable Doctor Unassigned, [place] Attending Clinician Unavailable Omer Coffman MD Attending Clinician Pob, Adc Lab Main Attending Clinician Unavailable OMER COFFMAN Attending Clinician Unavailable ROHINI FISHER Attending Clinician Unavailable Rohini Fisher DO Attending Clinician Payers Payer Name Policy Type Policy Number Effective Date Expiration Date S jose m [employer] II [id number] 2021 00:00:00 Problems Condition Condition Condition Status Onset Resolution Last Treating Co mments Source Name Details Category Date Date Treatment Clinician Date Osteoarthr Osteoarthr Disease Active U nivers itis of itis of 6-14 [place]y [place] [address] [place] [address] No known No known Disease Unive rs active active ity of problems problems [facility] Allergies, Adverse Reactions, Alerts Allergy Allergy Status Severity Reaction(s) Onset Inactive Treating Comm ents Source Name Type Date Date Clinician NO KNOWN Drug Active Univers ALLERGIE Class ity of S [facility] Social History Social Habit Start Date Stop Date Quantity Comments Source History of Cigarette Smoker Universi ty of tobacco use [facility] Exposure to 2023-02-12 2023-02-22 Not sure University SARS-CoV-2 00:00:00 16:15:00 [place] [facility] (event) Branch Sex [birth year] At [birth year] Universit y of 00:00:00 00:00:00 [facility] Smoking Status Start Date Stop Date Source Occasional tobacco smoker 2022-12-22 00:00:00 Un iversity [facility] Medications Ordered Filled Start Stop Current Ordering Indication Dosage Frequency Signature Comments Components Source Medication Medication Date Date Medication? Clinician (SIG) Name Name HYDROcodone 2022- Yes 4647 1{tbl} Take 1 U nivers -acetaminop 6-28 07-06 tablet by it y of hen ([place]) [place] 04[place] 10[place] 00 :00 every 6 Medical tablet (six) Branch hours as needed for Pain (scale 7-10) for up to 7 days. Indication s: acute pain DICLOFENAC Yes [id number] TAKE 1 Univers 75 mg EC 5-23 4102 TABLET BY ity of tablet 00:00: MOUTH [place] 00 TWICE A Medical DAY WITH Branch MEALS DICLOFENAC 2022-0 Yes [id number] TAKE 1 Univers 75 mg EC 5-23 4102 TABLET BY ity of tablet 00:00: MOUTH [place] 00 TWICE A Medical DAY WITH Branch MEALS DICLOFENAC 2022-0 Yes [id number] TAKE 1 Univers 75 mg EC 5-23 4102 TABLET BY ity of tablet 00:00: MOUTH [place] 00 TWICE A Medical DAY WITH Branch MEALS DICLOFENAC 2022-0 Yes [id number] TAKE 1 Univers 75 mg EC 5-23 4102 TABLET BY ity of tablet 00:00: MOUTH [place] 00 TWICE A Medical DAY WITH Branch MEALS DICLOFENAC 2022-0 Yes [id number] TAKE 1 Univers 75 mg EC 5-23 4102 TABLET BY ity of tablet 00:00: MOUTH [place] 00 TWICE A Medical DAY WITH Branch MEALS DICLOFENAC 2022-0 Yes [id number] TAKE 1 Univers 75 mg EC 5-23 4102 TABLET BY ity of tablet 00:00: MOUTH [place] 00 TWICE A Medical DAY WITH Branch MEALS DICLOFENAC 2022-0 Yes [id number] TAKE 1 Univers 75 mg EC 5-23 4102 TABLET BY ity of tablet 00:00: MOUTH [place] 00 TWICE A Medical DAY WITH Branch MEALS DICLOFENAC 2023-0 Yes [id number] TAKE 1 Univers 75 mg EC 5-23 4102 TABLET BY ity of tablet 00:00: MOUTH [place] 00 TWICE A Medical DAY WITH Branch MEALS DICLOFENAC 2023-0 Yes [id number] TAKE 1 Univers 75 mg EC 5-23 4102 TABLET BY ity of tablet 00:00: MOUTH [place] 00 TWICE A Medical DAY WITH Branch MEALS DICLOFENAC 2023-0 Yes [id number] TAKE 1 Univers 75 mg EC 5-23 4102 TABLET BY ity of tablet 00:00: MOUTH [place] 00 TWICE A Medical DAY WITH Branch MEALS DICLOFENAC 2023-0 Yes [id number] TAKE 1 Univers 75 mg EC 5-23 4102 TABLET BY ity of tablet 00:00: MOUTH [place] 00 TWICE A Medical DAY WITH Branch MEALS HYDROcodone 2022-0 2022- Yes 4647 1{tbl} Take 1 U nivers -acetaminop 4-12 04-20 tablet by it y of hen ([employer]ec) 00:00: 04:59 [place] 10-325 mg 00 :00 every 6 Medical tablet (six) Branch hours as needed for Pain (scale 7-10) for up to 7 days. Indication s: acute pain HYDROcodone 2022-0 2022- Yes 4647 1{tbl} Take 1 U nivers -acetaminop 4-12 04-20 tablet by it y of hen ([employer]) 00:00: 04:59 [place] 10-325 mg 00 :00 every 6 Medical tablet (six) Branch hours as needed for Pain (scale 7-10) for up to 7 days. Indication s: acute pain HYDROcodone 2022-0 2022- Yes 4647 1{tbl} Take 1 U nivers -acetaminop 4-12 04-20 tablet by it y of hen ([employer]) 00:00: 04:59 [place] 10-325 mg 00 :00 every 6 Medical tablet (six) Branch hours as needed for Pain (scale 7-10) for up to 7 days. Indication s: acute pain HYDROcodone 2022-0 2022- Yes 4647 1{tbl} Take 1 U nivers -acetaminop 4-12 -20 tablet by it y of hen (NORCO) 00:00: 04:59 [place] 10-325 mg 00 :00 every 6 Medical tablet (six) Branch hours as needed for Pain (scale 7-10) for up to 7 days. Indication s: acute pain diclofenac 2023-0 Yes [id number] 75mg Take 1 Univers 75 mg EC 3-24 4102 tablet by ity of tablet 00:00: mouth (two) Medical times Branch daily with meals. diclofenac 2023-0 Yes [id number] 75mg Take 1 Univers 75 mg EC 3-24 4102 tablet by ity of tablet 00:00: mouth (two) Medical times Branch daily with meals. diclofenac 2023-0 Yes [id number] 75mg Take 1 Univers 75 mg EC 3-24 4102 tablet by ity of tablet 00:00: mouth (two) Medical times Branch daily with meals. diclofenac 2023-0 Yes [id number] 75mg Take 1 Univers 75 mg EC 3-24 4102 tablet by ity of tablet 00:00: mouth (two) Medical times Branch daily with meals. diclofenac 2023-0 Yes [id number] 75mg Take 1 Univers 75 mg EC 3-24 4102 tablet by ity of tablet 00:00: mouth (two) Medical times Branch daily with meals. diclofenac 2023-0 Yes [id number] 75mg Take 1 Univers 75 mg EC 3-24 4102 tablet by ity of tablet 00:00: mouth (two) Medical times Branch daily with meals. diclofenac 2023-0 Yes [id number] 75mg Take 1 Univers 75 mg EC 3-24 4102 tablet by ity of tablet 00:00: mouth (two) Medical times Branch daily with meals. diclofenac 2023-0 Yes [id number] 75mg Take 1 Univers 75 mg EC 3-24 4102 tablet by ity of tablet 00:00: mouth (two) Medical times Branch daily with meals. diclofenac 2023-0 Yes [id number] 75mg Take 1 Univers 75 mg EC 3-24 4102 tablet by ity of tablet 00:00: mouth (two) Medical times Branch daily with meals. diclofenac 2023-0 Yes [id number] 75mg Take 1 Univers 75 mg EC 3-24 4102 tablet by ity of tablet 00:00: mouth [place] (two) Medical times Branch daily with meals. diclofenac 2023-0 Yes [id number] 75mg Take 1 Univers 75 mg EC 3-24 4102 tablet by ity of tablet 00:00: mouth 2 [place] (two) Medical times Branch daily with meals. diclofenac 2023-0 Yes [id number] 75mg Take 1 Univers 75 mg EC 3-24 4102 tablet by ity of tablet 00:00: mouth [place] (two) Medical times Branch daily with meals. diclofenac 2023-0 Yes [id number] 75mg Take 1 Univers 75 mg EC 3-24 4102 tablet by ity of tablet 00:00: mouth [place] (two) Medical times Branch daily with meals. diclofenac 2023-0 Yes [id number] 75mg Take 1 Univers 75 mg EC 3-24 4102 tablet by ity of tablet 00:00: mouth [place] (two) Medical times Branch daily with meals. diclofenac 2023-0 Yes [id number] 75mg Take 1 Univers 75 mg EC 3-24 4102 tablet by ity of tablet 00:00: mouth [place] (two) Medical times Branch daily with meals. diclofenac 2023-0 Yes [id number] 75mg Take 1 Univers 75 mg EC 3-24 4102 tablet by ity of tablet 00:00: mouth [place] (two) Medical times Branch daily with meals. diclofenac 2023-0 2023- No [id number] 75mg Take 1 Univers 75 mg EC 3-24 05-23 4102 tablet by ity o f tablet 00:00: 00:[address] 00 : (two) Medical times Branch daily with meals. lisinopriL 2023-0 Yes 20mg Take 20 mg U nivers 40 mg 1-04 by mouth ity of tablet 00:00: daily. [place] [facility] amLODIPine 2023-0 Yes 5mg Take 5 mg Un vida 5 mg tablet 1-04 by mouth ity of 00:00: daily. [place] [facility] lisinopriL 2023-0 Yes 20mg Take 20 mg U nivers 40 mg 1-04 by mouth ity of tablet 00:00: daily. [place] [facility] amLODIPine 2023-0 Yes 5mg Take 5 mg Un vida 5 mg tablet 1-04 by mouth ity of 00:00: daily. [place] [facility] lisinopriL 2023-0 Yes 20mg Take 20 mg U nivers 40 mg 1-04 by mouth ity of tablet 00:00: daily. [place] [facility] amLODIPine 2023-0 Yes 5mg Take 5 mg Un vida 5 mg tablet 1-04 by mouth ity of 00:00: daily. [place] [facility] lisinopriL 2023-0 Yes 20mg Take 20 mg U nivers 40 mg 1-04 by mouth ity of tablet 00:00: daily. [place] [facility] amLODIPine 2023-0 Yes 5mg Take 5 mg Un vida 5 mg tablet 1-04 by mouth ity of 00:00: daily. [place] [facility] lisinopriL 2023-0 Yes 20mg Take 20 mg U nivers 40 mg 1-04 by mouth ity of tablet 00:00: daily. [place] [facility] amLODIPine 2023-0 Yes 5mg Take 5 mg Un vida 5 mg tablet 1-04 by mouth ity of 00:00: daily. [place] [facility] lisinopriL 2023-0 Yes 20mg Take 20 mg U nivers 40 mg 1-04 by mouth ity of tablet 00:00: daily. [place] [facility] amLODIPine 2023-0 Yes 5mg Take 5 mg Un vida 5 mg tablet 1-04 by mouth ity of 00:00: daily. [place] [facility] Branch lisinopriL 2023-0 Yes 20mg Take 20 mg U nivers 40 mg 1-04 by mouth ity of tablet 00:00: daily. [place] [facility] amLODIPine 2023-0 Yes 5mg Take 5 mg Un vida 5 mg tablet 1-04 by mouth ity of 00:00: daily. [place] [facility] lisinopriL 2023-0 Yes 20mg Take 20 mg U nivers 40 mg 1-04 by mouth ity of tablet 00:00: daily. [place] [facility] Branch amLODIPine 2023-0 Yes 5mg Take 5 mg Un vida 5 mg tablet 1-04 by mouth ity of 00:00: daily. [place] [facility] Branch lisinopriL 2023-0 Yes 20mg Take 20 mg U nivers 40 mg 1-04 by mouth ity of tablet 00:00: daily. [place] [address] Medical Branch amLODIPine 2023-0 Yes 5mg Take 5 mg Un vida 5 mg tablet 1-04 by mouth ity of 00:00: daily. [place] [facility] lisinopriL 2023-0 Yes 20mg Take 20 mg U nivers 40 mg 1-04 by mouth ity of tablet 00:00: daily. [place] [facility] Branch amLODIPine 2023-0 Yes 5mg Take 5 mg Un vida 5 mg tablet 1-04 by mouth ity of 00:00: daily. [place] [facility] lisinopriL 2023-0 Yes 20mg Take 20 mg U nivers 40 mg 1-04 by mouth ity of tablet 00:00: daily. [place] [facility] amLODIPine 2023-0 Yes 5mg Take 5 mg Un vida 5 mg tablet 1-04 by mouth ity of 00:00: daily. [place] [facility] Branch lisinopriL 2023-0 Yes 20mg Take 20 mg U nivers 40 mg 1-04 by mouth ity of tablet 00:00: daily. [place] [facility] Branch amLODIPine 2023-0 Yes 5mg Take 5 mg Un vida 5 mg tablet 1-04 by mouth ity of 00:00: daily. [place] [facility] Branch lisinopriL 2023-0 Yes 20mg Take 20 mg U nivers 40 mg 1-04 by mouth ity of tablet 00:00: daily. [place] [facility] Branch amLODIPine 2023-0 Yes 5mg Take 5 mg Un vida 5 mg tablet 1-04 by mouth ity of 00:00: daily. [place] [facility] Branch lisinopriL 2023-0 Yes 20mg Take 20 mg U nivers 40 mg 1-04 by mouth ity of tablet 00:00: daily. [place] [facility] amLODIPine 2023-0 Yes 5mg Take 5 mg Un vida 5 mg tablet 1-04 by mouth ity of 00:00: daily. [place] [facility] lisinopriL 2023-0 Yes 20mg Take 20 mg U nivers 40 mg 1-04 by mouth ity of tablet 00:00: daily. [address] Branch amLODIPine 2023-0 Yes 5mg Take 5 mg Un vida 5 mg tablet 1-04 by mouth ity of 00:00: daily. [address] Branch lisinopriL 2023-0 Yes 20mg Take 20 mg U nivers 40 mg 1-04 by mouth ity of tablet 00:00: daily. [place] [facility] Branch amLODIPine 2023-0 Yes 5mg Take 5 mg Un vida 5 mg tablet 1-04 by mouth ity of 00:00: daily. [place] [facility] Branch lisinopriL 2023-0 Yes 20mg Take 20 mg U nivers 40 mg 1-04 by mouth ity of tablet 00:00: daily. [place] [facility] amLODIPine 2023-0 Yes 5mg Take 5 mg Un vida 5 mg tablet 1-04 by mouth ity of 00:00: daily. [place] [facility] Branch lisinopriL 2023-0 Yes 20mg Take 20 mg U nivers 40 mg 1-04 by mouth ity of tablet 00:00: daily. [place] [facility] amLODIPine 2023-0 Yes 5mg Take 5 mg Un vida 5 mg tablet 1-04 by mouth ity of 00:00: daily. [place] [facility] lisinopriL 2023-0 Yes 20mg Take 20 mg U nivers 40 mg 1-04 by mouth ity of tablet 00:00: daily. [place] [facility] amLODIPine 2023-0 Yes 5mg Take 5 mg Un vida 5 mg tablet 1-04 by mouth ity of 00:00: daily. [place] [facility] Branch lisinopriL 2023-0 Yes 20mg Take 20 mg U nivers 40 mg 1-04 by mouth ity of tablet 00:00: daily. [place] [facility] amLODIPine 2023-0 Yes 5mg Take 5 mg Un vida 5 mg tablet 1-04 by mouth ity of 00:00: daily. [place] [facility] Branch lisinopriL 2023-0 Yes 20mg Take 20 mg U nivers 40 mg 1-04 by mouth ity of tablet 00:00: daily. [place] [facility] amLODIPine 2023-0 Yes 5mg Take 5 mg Un vida 5 mg tablet 1-04 by mouth ity of 00:00: daily. [place] [facility] Branch lisinopriL 2023-0 Yes 20mg Take 20 mg U nivers 40 mg 1-04 by mouth ity of tablet 00:00: daily. [address] amLODIPine 2023-0 Yes 5mg Take 5 mg Un vida 5 mg tablet 1-04 by mouth ity of 00:00: daily. [place] [facility] lisinopriL 2023-0 Yes 20mg Take 20 mg U nivers 40 mg 1-04 by mouth ity of tablet 00:00: daily. [place] [facility] amLODIPine 2023-0 Yes 5mg Take 5 mg Un vida 5 mg tablet 1-04 by mouth ity of 00:00: daily. [place] [facility] lisinopriL 2023-0 Yes 20mg Take 20 mg U nivers 40 mg 1-04 by mouth ity of tablet 00:00: daily. [place] [facility] amLODIPine 2023-0 Yes 5mg Take 5 mg Un vida 5 mg tablet 1-04 by mouth ity of 00:00: daily. [place] [facility] Branch lisinopriL 2023-0 Yes 20mg Take 20 mg U nivers 40 mg 1-04 by mouth ity of tablet 00:00: daily. [place] [facility] Branch amLODIPine 2023-0 Yes 5mg Take 5 mg Un vida 5 mg tablet 1-04 by mouth ity of 00:00: daily. [place] [facility] Branch lisinopriL 2023-0 Yes 20mg Take 20 mg U nivers 40 mg 1-04 by mouth ity of tablet 00:00: daily. [place] [facility] Branch amLODIPine 2023-0 Yes 5mg Take 5 mg Un vida 5 mg tablet 1-04 by mouth ity of 00:00: daily. [place] [facility] lisinopriL 2023-0 Yes 20mg Take 20 mg U nivers 40 mg 1-04 by mouth ity of tablet 00:00: daily. [place] [facility] amLODIPine 2023-0 Yes 5mg Take 5 mg Un vida 5 mg tablet 1-04 by mouth ity of 00:00: daily. [place] [facility] lisinopriL 2023-0 Yes 20mg Take 20 mg U nivers 40 mg 1-04 by mouth ity of tablet 00:00: daily. [place] [facility] Branch amLODIPine 2023-0 Yes 5mg Take 5 mg Un vida 5 mg tablet 1-04 by mouth ity of 00:00: daily. [address] Branch lisinopriL 2023-0 Yes 20mg Take 20 mg U nivers 40 mg 1-04 by mouth ity of tablet 00:00: daily. [address] Branch amLODIPine 2023-0 Yes 5mg Take 5 mg Un vida 5 mg tablet 1-04 by mouth ity of 00:00: daily. [place] [facility] Branch lisinopriL 2023-0 Yes 20mg Take 20 mg U nivers 40 mg 1-04 by mouth ity of tablet 00:00: daily. [place] [facility] amLODIPine 2023-0 Yes 5mg Take 5 mg Un vida 5 mg tablet 1-04 by mouth ity of 00:00: daily. [place] [facility] lisinopriL 2023-0 Yes 20mg Take 20 mg U nivers 40 mg 1-04 by mouth ity of tablet 00:00: daily. [place] [facility] amLODIPine 2023-0 Yes 5mg Take 5 mg Un vida 5 mg tablet 1-04 by mouth ity of 00:00: daily. [place] [facility] lisinopriL 3-0 Yes 20mg Take 20 mg U nivers 40 mg 1-04 by mouth ity of tablet 00:00: daily. [place] [facility] amLODIPine 2023-0 Yes 5mg Take 5 mg Un vida 5 mg tablet 1-04 by mouth ity of 00:00: daily. [place] [facility] lisinopriL 3-0 Yes 20mg Take 20 mg U nivers 40 mg 1-04 by mouth ity of tablet 00:00: daily. [place] [facility] amLODIPine 3-0 Yes 5mg Take 5 mg Un vida 5 mg tablet 1-04 by mouth ity of 00:00: daily. [address] lisinopriL 2023-0 Yes 20mg Take 20 mg U nivers 40 mg 1-04 by mouth ity of tablet 00:00: daily. [place] [facility] amLODIPine 2023-0 Yes 5mg Take 5 mg Un vida 5 mg tablet 1-04 by mouth ity of 00:00: daily. [address] lisinopriL 2023-0 Yes 20mg Take 20 mg U nivers 40 mg 1-04 by mouth ity of tablet 00:00: daily. [address] amLODIPine 2023-0 Yes 5mg Take 5 mg Un vida 5 mg tablet 1-04 by mouth ity of 00:00: daily. [address] No known No No known Unive rs medications 9-26 medication it y of 13:31: s [place] 03 Medical Branch Vital Signs Vital Name Observation Time Observation Value Comments Source Systolic blood 2023-04-12 19:43:00 129 mm[Hg] Univer sity of pressure [place] [facility] Diastolic blood 2023-04-12 19:43:00 79 mm[Hg] Unive rsity of pressure [place] [facility] Heart rate 2023-04-12 19:43:00 85 /min Universi ty of [place] [facility] Body height 2023-04-12 19:43:00 167.6 cm Universi ty of [place] [facility] Body weight 2023-04-12 19:43:00 97.433 kg [facility]i [facility] [place] [facility] BMI 2023-04-12 19:43:00 34.67 kg/m2 Universi ty [facility] [place] [facility] Systolic blood 2023-02-22 21:28:00 129 mm[Hg] Univer sity of pressure [place] [facility] Diastolic blood 2023-02-22 21:28:00 89 mm[Hg] Unive rsity of pressure [facility] Heart rate 2023-02-22 21:28:00 102 /min Universi ty of [place] [facility] Body height 2023-02-22 21:28:00 167.6 cm Universi ty of [place] [facility] Body weight 2023-02-22 21:28:00 95.981 kg Universi ty [facility] [place] [facility] BMI 2023-02-22 21:28:00 34.15 kg/m2 [facility]i [facility] [place] [facility] Body height 2023-02-13 21:27:00 167.6 cm Universi ty [facility] [place] [facility] Body weight 2023-02-13 21:27:00 97.523 kg [facility]i ty [facility] [place] [facility] BMI 2023-02-13 21:27:00 34.70 kg/m2 [facility] [place] [facility] Body height 2023-01-20 13:03:00 167.6 cm [facility]i ty [facility] [place] [facility] Body weight 2023-01-20 13:03:00 97.523 kg Universi ty [facility] [place] [facility] BMI 2023-01-20 13:03:00 34.70 kg/m2 [facility]i ty [facility] [place] [facility] Systolic blood 2022-12-22 20:48:00 138 mm[Hg] Univer sity of pressure [place] [facility] Diastolic blood 2022-12-22 20:48:00 81 mm[Hg] Unive rsity of pressure [place] [facility] Heart rate 2022-12-22 20:48:00 79 /min Universi ty of [place] [facility] Oxygen saturation in 2022-12-22 20:48:00 95 /min University of Arterial blood by [facility] [place] [facility] Pulse oximetry Branch Respiratory rate 2022-12-22 20:42:00 19 /min Univ ersity of [place] [facility] Body height 2022-12-22 20:42:00 167.6 cm Universi ty of [place] [facility] Body weight 2022-12-22 20:42:00 97.932 kg [facility]i ty [facility] [place] [facility] BMI 2022-12-22 20:42:00 34.85 kg/m2 [facility]i ty [facility] [place] [facility] Body height 2022-12-16 16:11:00 167.6 cm Universi ty [facility] [place] [facility] Body weight 2022-12-16 16:11:00 98.022 kg [facility]i ty [facility] [place] [facility] BMI 2022-12-16 16:11:00 34.88 kg/m2 [facility]i ty [facility] [place] [facility] Systolic blood 2022-07-25 18:28:00 161 mm[Hg] Univer sity of [facility] Medical Branch Diastolic blood 2022-07-25 18:28:00 96 mm[Hg] Unive rsity of pressure [place] [facility] Heart rate 2022-07-25 18:28:00 100 /min Universi ty of [place] [facility] Body temperature 2022-07-25 18:28:00 37.17 Basilia Univ ersity of [place] [facility] Respiratory rate 2022-07-25 18:28:00 15 /min Univ ersity of [place] [facility] Body height 2022-07-25 18:28:00 167.6 cm Universi ty [facility] [place] [facility] Body weight 2022-07-25 18:28:00 104.327 kg [facility]i ty [facility] [place] [facility] BMI 2022-07-25 18:28:00 37.12 kg/m2 [facility] [place] [facility] Oxygen saturation in 2022-07-25 18:28:00 97 /min University of Arterial blood by [facility] [place] [facility] Pulse oximetry Branch Procedures Procedure Date / Time Performed Performing Clinician [facility] e REFERRAL- 2023-03-23 05:01:00 Doctor Unassigned, No Univer sity [facility] REQUEST/RESPONSE Name Medical Branch REFERRAL- 2023-02-08 05:01:00 Doctor Unassigned, No Univer [facility] REQUEST/RESPONSE Name [facility] [place] XR CHEST 1 VW 2023-01-30 15:17:19 Deena Velasquez [facility] EXTERNAL PROVIDER - 2023-01-11 05:01:00 Doctor Unassigned, No Un iversity of [place] ADC CARDIOLOGY Name [facility] [place] EXTERNAL PROVIDER 2023-01-03 06:01:00 Doctor Unassigned, No [facility] [place] RECORDS Name [facility] [place] HB ECG ROUTINE & 2022-12-22 20:51:43 [facility] RHYTHM STRIP Medical Branch ASSIGNMENT OF BENEFITS 2022-12-16 15:55:04 Doctor Unassigned, No [facility] NOTICE OF PRIVACY 2022-07-25 18:16:43 Doctor Unassigned, No [facility] PRACTICES Name [facility] CONSENT/REFUSAL FOR 2022-07-25 18:14:37 Doctor Unassigned, No [facility] AND Name Medical Branch TREATMENT Encounters Start End Encounter Admission Attending Care Care Encounter Source Date/Time Date/Time Type Type Clinicians Facility Department ID 2022-07-13 Outpatient Mims, STLMLC STLC [id number] Common 14:45:04 [facility] [id number] [facility] 2023-05-03 2023-05-03 Outpatient Adelia VELASQUEZ [facility] [id number] Univers 14:45:00 14:45:00 DEENA eliu [facility] 2023-05-03 2023-05-03 Outpatient Adelia VELASQUEZ [facility] [id number] Univers 14:45:00 14:45:00 [facility]01 2023-05-01 Outpatient Adelia VELASQUEZ [facility] [id number] Univers 14:00:00 14:00:00 DEENA eliu [facility] 2023-04-27 2023-04-27 Outpatient Adelia HURTADO [facility] [id number] Univers 12:26:31 23:59:00 BENEDICT [facility] [place] [facility] 2023-04-27 2023-04-27 Telephone Bryant DCKULWANT [id number] Univers 00:00:00 00:00:00 Benedict S HEALTH [id number] it y of [place] [id number] Bandar as SHAWNEE?BLEA [id number] [place] soila ANDREWS 198 [facility] OFFICE [facility] 2023-04-25 2023-04-25 Outpatient SFA SFA [id number] Jesús 14:15:29 14:15:29 0627 F Mathew 2023-04-24 2023-04-24 [facility] [id number] [facility] 14:45:00 14:45:00 DEENA rey [facility] 2023-04-24 2023-04-24 Telephone [facility] [id number] Univers 00:00:00 00:00:00 Deena Moreno [email or web address] [id number] it y of [place] [id number] Bandar as SHAWNEE?BLEA [id number] [place] soila ANDREWS [address] [facility] and Clinics 2023-04-21 2023-04-21 Telephone [facility] 1.2.840.114 10 [id number] Univers 00:00:00 00:00:00 Deena Moreno [email or web address] 350.1.13.10 it y of [place] 4.2.7.2.686 Bandar as SHAWNEE?BLEA [phone] [place] soila ANDREWS [address] [facility] 2023-04-20 2023-04-20 Telephone [facility] 1.2.840.114 10 [id number] Univers 00:00:00 00:00:00 Deena Moreno HEALTH 350.1.13.10 it y of [place] 4.2.7.2.686 Bandar as SHAWNEE?BLEA [phone] Me soila ANDREWS 198 [facility] 2023-04-18 2023-04-18 Telephone [facility] 1.2.647.546 [id number] Univers 00:00:00 00:00:00 Benedict S HEALTH 350.1.13.10 it y of [place] 4.2.7.2.686 Bandar as SHAWNEE?BLEA [phone] [place]x soila ANDREWS [address] [facility] 2023-04-12 2023-04-12 Dominatrix Lab, Ang - Db RUST 1.2.840.1 14 [id number] Univers 15:30:00 15:45:00 Visit Deena Velasquez 350.1.13.10 ity of [place] 4.2.7.2.686 Bandar as SHAWNEE?BLEA [phone] [place]x soila ANDREWS [address] [place] [facility] 2023-04-12 2023-04-12 [facility] [id number] Univers 14:30:00 15:26:34 DEENA iteliu [facility] 2023-04-12 2023-04-12 Office [facility] 1.2.710.141 [id number] Univers 14:30:00 15:26:34 Visit Deena CHILDRESS 350.1.13.10 it y of [place] 4.2.7.2.686 Bandar as SHAWNEE?BLEA [phone] Tx soila [facility] 198 [facility] 2023-04-12 2023-04-12 Telephone [facility] 1.2.840.114 10 [id number] Univers 00:00:00 00:00:00 Deena CHILDRESS 350.1.13.10 it y of [place] 4.2.7.2.686 Bandar as SHAWNEE?BLEA [id number] Tx soila JOSHUA 198 [facility] 2023-04-03 2023-04-03 Outpatient R BRYANT [facility] [id number] Univers 16:15:00 16:15:00 BENEDICT ity [facility] 2023-03-23 2023-03-23 Orders Doctor CHASTITY 1.2.840.114 [id number] Univers 00:00:00 00:00:00 Only Unassigned, GREG 350.1.13.10 ity of [place] [facility] 4.2.7.2.686 Bandar as [id number] [address] 2023-03-18 2023-03-18 Refill [facility] 1.2.610.974 [id number] Univers 00:00:00 00:00:00 Deena Moreno [email or web address] 350.1.13.10 it y of [place] 4.2.7.2.686 Badnar as SHAWNEE?BLEA [phone] Tx soila ANDREWS 198 [facility] 2023-02-24 2023-02-24 Telephone [facility] 1.2.840.114 10 [id number] Univers 00:00:00 00:00:00 Deena L HEALTH 350.1.13.10 it y of [place] 4.2.7.2.686 Bandar as SHAWNEE?BLEA [phone] Tx soila ANDREWS 198 [facility] 2023-02-22 2023-02-22 Outpatient [facility] [id number] Univers 16:28:40 23:59:00 [facility] 2023-02-22 2023-02-22 Office [facility] 1.2.840.114 [id number] Univers 16:15:00 16:30:00 Visit [facility] 350.1.13.10 it y of [place] 4.2.7.2.686 Bandar as SHAWNEE?BLEA [id number] Tx soila ANDREWS [address] [facility] 2023-02-13 2023-02-13 Outpatient [facility] [id number] Univers 16:15:00 16:50:49 [facility] 2023-02-13 2023-02-13 Office [facility] 1.2.840.114 [id number] Univers 16:15:00 16:50:49 Visit [facility] HEALTH 350.1.13.10 it y of [place] 4.2.7.2.686 Bandar as SHAWNEE?BLEA [phone] Tx soila ANDREWS 198 [facility] 2023-02-10 2023-02-10 Telephone [facility] 1.2.840.114 10 [id number] Univers 00:00:00 00:00:00 Deena L HEALTH 350.1.13.10 it y of [place] 4.2.7.2.686 Bandar as SHAWNEE?BLEA [phone] Tx soila ANDREWS 198 [facility] 2023-02-08 2023-02-08 Telephone [facility] 1.2.840.114 10 [id number] Univers 00:00:00 00:00:00 Deena L HEALTH 350.1.13.10 it y of [facility] 4.2.7.2.686 Bandar as SHAWNEE?BLEA [phone] Tx soila ANDREWS [address] [place] [facility] 2023-02-08 2023-02-08 Orders Doctor CHASTITY 1.2.840.114 [id number] Univers 00:00:00 00:00:00 Only Unassigned, GREG 350.1.13.10 ity of [place] [facility] 4.2.7.2.686 [place]ar as [phone] [facility] [address] [place] 2023-02-06 2023-02-06 Prep For Bryant RUST 1.2.840.114 [id number] Univers 00:00:00 00:00:00 Surgery [facility] 350.1.13.10 it y of [facility] 4.2.7.2.686 Bandar as SHAWNEE?BLEA [phone] Tx soila ANDREWS 198 [facility] 2023-01-31 2023-01-31 Brandy Coffman [facility] 1.2.897.018 [id number] Univers 00:00:00 00:00:00 Omer PRAKASH 350.1.13.10 it[facility] 4.2.7.2.[place] PROF[place] [phone] Tx dical NAL 059 [facility] 2023-01-30 2023-01-30 Dominatrix Uriel, Reji Lab Main [facility] 1.2.8 40.114 [id number] Univers 10:30:00 10:45:00 Visit Deena Velasquez 350.1.13.10 ity of [place] 4.2.7.2.[place] [phone] Tx dical NAL 353 [facility] 2023-01-30 2023-01-30 Hospital Ron [facility] 1.2.840.114 [id number] Univers 09:54:29 09:56:00 Encounter Deena PRAKASH 350.1.13.10 it[place] of [place] 4.2.7.2.[place] [phone] [facility] [address] [place] 2023-01-30 2023-01-30 Outpatient R MEGHNA [facility] [id number] Univers 08:39:50 09:53:00 QIANELA ity o f [facility] 2023-01-26 2023-01-26 Telephone [facility] 1.2.840.114 10 [id number] Univers 00:00:00 00:00:00 Deena CHILDRESS 350.1.13.10 it y of [place] 4.2.7.2.686 [place]ar as SHAWNEE?BLEA [phone] Tx soila ANDREWS 044 [facility] 2023-01-25 2023-01-25 Telephone [facility] 1.2.025.384 [id number] Univers 00:00:00 00:00:00 Kierstenanaliliamarcus [facility] 350.1.13.10 ity [facility] 4.2.7.2.[place] [phone] Tx soila NAL 059 [facility] 2023-01-20 2023-01-20 Office [facility] 1.2.257.300 [id number] Univers 08:30:00 09:14:26 Visit Deena CHILDRESS 350.1.13.10 it y of [place] 4.2.7.2.686 Bandar as SHAWNEE?BLEA [phone] Tx soila ANDREWS [address] [facility] 2023-01-20 2023-01-20 Outpatient [facility] [id number] Univers 08:30:00 09:14:26 DEENA rey [facility] 2023-01-19 2023-01-19 Outpatient [facility] [id number] Univers 09:00:00 09:00:00 OMER ity o f [facility] 2023-01-12 2023-01-12 Telephone [facility] 1.2.840.114 10 [id number] Univers 00:00:00 00:00:00 Deena CHILDRESS 350.1.13.10 it y of [place] 4.2.7.2.686 Bandar as SHAWNEE?BLEA [id number] Tx soila ANDREWS 198 [facility] 2023-01-11 2023-01-11 Outpatient [facility] [id number] Univers 16:00:00 16:00:00 OMER ity o f [facility] 2023-01-11 2023-01-11 Orders Doctor CHASTITY 1.2.840.114 [id number] Univers 00:00:00 00:00:00 Only Unassigned, GREG 350.1.13.10 ity of [place] [facility] 4.2.7.2.686 Bandar as [id number] [facility] [address] [place] 2023-01-03 2023-01-03 Orders Doctor CHASTITY 1.2.840.114 [id number] Univers 00:00:00 00:00:00 Only Unassigned, GREG 350.1.13.10 ity of [place] [facility] 4.2.7.2.686 [place] as [phone] [address] 2022-12-30 2022-12-30 Telephone Ron [place] 1.2.840.114 10 [id number] Univers 00:00:00 00:00:00 Deena [facility] 350.1.13.10 it y of [place] 4.2.7.2.686 Bandar as SHAWNEE?BLEA [phone] Tx soila ANDREWS 198 [facility] 2022-12-28 2022-12-28 Outpatient SFA [facility] [id number] Jesús 16:47:04 16:47:04 [address] [place] 2022-12-22 2022-12-22 Outpatient R MEGHNA [facility] [id number] Univers 14:40:00 15:04:22 OMER rey o [facility] 2022-12-22 2022-12-22 Office [facility] 1.2.840.114 [id number] Univers 14:40:00 15:04:22 Visit [facility] 350.1.13.10 ity of [facility] 4.2.7[place]2.[place] [id number] Tx soila MORSE 059 [facility] 2022-12-16 2022-12-16 Outpatient R RON [facility] [id number] Univers 11:00:00 11:53:49 DEENA ity of [facility] 2022-12-16 2022-12-16 Office Ron RUST [id number] [id number] Univers 11:00:00 11:53:49 Visit Deena Moreno [facility] 350.1.13.10 it y of [place] 4.2.7.2.686 Bandar as SHAWNEE?BLEA [phone] Tx soila JOSHUA [address] [place] [address] MEDICAL OFFICE BUILDING 2022-12-16 2022-12-16 Orders Doctor CHASTITY 1.2.840.114 [id number] Univers 00:00:00 00:00:00 Only Unassigned, GREG 350.1.13.10 ity of [place] [facility] 4.2.7.2.686 [place] as [phone] [address] 2022-11-16 2022-11-16 Outpatient [facility] [id number] Jesús 17:15:54 17:15:54 0118 [facility] 2022-11-02 2022-11-02 Outpatient [facility] [id number] Jesús 17:10:25 17:10:25 0104 [facility] 2022-07-25 2022-07-25 Emergency X [facility] E[facility] [id number] Univers 13:29:00 14:10:00 ROHINI rey [facility] 2022-07-25 2022-07-25 Emergency [facility] 1.2.840.114 [id number] Univers 13:29:00 14:10:00 Rohini Hilaria [facility] 350.1.13.10 ity of [facility] 4.2.7.2.686 [place] [facility] [phone] [address] Results Test Description Test Time Test Comments Results Result Comments Source COMPREHENSIVE METABOLIC PANEL 2023-04-26 05:52:11 Test Item Value Reference Range Interpretation Comme nts GLUCOSE (test code = 2217) 95 MG/DL 70-99 BUN (test code = 2208) 17 MG/DL 6-20 CREATININE (test code = 1.08 MG/DL 0.80-1.40 2213) eGFR (2020 CKD-EPI) (test 79 ML/MIN/1.73 >60 code = 29485) CALC BUN/CREAT (test code = 16 RATIO -2234) SODIUM (test code = 223) 142 MEQ/L 133-146 POTASSIUM (test code = 4.6 MEQ/L 3.5-5.4 2227) CHLORIDE (test code = 2215) 105 MEQ/L 95-107 CARBON DIOXIDE (test code = 27 MEQ/L 19-31 2205) CALCIUM (test code = 2209) 9.6 MG/DL 8.5-10.5 PROTEIN, TOTAL (test code = 7.4 G/DL 6.1-8.3 2228) ALBUMIN (test code = 2201) 4.6 G/DL 3.5-5.2 CALC GLOBULIN (test code = 2.8 G/DL 1.9-3.7 2239) CALC A/G RATIO (test code = 1.6 RATIO 1.0-2.6 2233) BILIRUBIN, TOTAL (test code 0.3 MG/DL See_Comment [Automated message] The = 2206) system which ge nerated this result transmit tru reference range: <=1.2. T he reference range was not u sed to interpret this result as normal/abnormal . ALKALINE PHOSPHATASE (test 111 U/L 40-123 code = 2204) AST (test code = 2218) 16 U/L 9-50 ALT (test code = 2219) 15 U/L 5-50 UNLE SS OTHERWISE INDICATED, ALL TESTING PER FORMED AT CLINICAL PATHOL [employer], [facility]. [address] [place] [address] LABORATORY DIRE CTOR: VALERIE MAY M.D. CLIA NUMBER [id number] CAP ACCREDITATION N O. [id number] LIPID [id number] 05:52:11 Test Item Value Reference Range Interpretation Comments CHOLESTEROL (test 161 MG/DL <200 code = 2210) TRIGLYCERIDES (test 246 MG/DL <150 H code = 2232) HDL CHOLESTEROL (test 31 MG/DL >39 L code = 2220) CALC LDL CHOL (test 93 MG/DL <100 NOTE: C ALCULATED LDL code = 2237) IS BASED ON JOVANNY-MCFARLANE METHOD WHICHINCLUDES ADJUSTABLE TRIGLYCERIDE:VL DL CHOLESTEROL RAT IO.THIS FACTOR VARIES B Y MEASURED TRIGLY CERIDE AND NON-HDLCHOL ESTEROL CONCENTRATIONS WITH INCREASED CALCU LATED LDL SEENIN HIGH ER TRIGLYCERIDE OR LOWER NON-HDL SPECIME NS. FOR MOREINFORMATION , SEE CLIENT ANNOUNCE MENT AT [email or web address] [email or web address] [email or web address] LDL/HDL 3.00 RATIO <3.55 (test code = 2238) HEMOGLOBIN [id number] 02:30:31 Test Item Value Reference Range Interpretation Comments HEMOGLOBIN A1c (test 6.1 % 4.2-5.6 H AMERIC AN DIABETES code = 74814) ASSOCIATION IDELINES FOR HGB A1C: PREDIABETES/INC REASED RISK . . . . . . . 5.7 -6.4% DIAGNOSIS OF DI ABETES . . . . . . . . . >=6 .5% WITH CONFIRMATION OR APPROPRIATE SYMPTOMS NOTE: ASSAY MAY BE AFFECTED BY HEMOGLOBINOPATH IES (SICKLE CELL ANEMIA, S- C DISEASE, OTHERS) OR ALEK FICIALLY LOWERED BY DECR EASED RED CELL SURVIVAL ( HEMOLYTIC ANEMIAS, BLOOD LOSS, ETC.). CONSIDER ALTERN ATE TESTING OR LABORATORY C ONSULTATION. CBC W/AUTO DIFF WITH [id number] 01:59:46 Test Item Value Reference Range Interpretation Comments WBC (test code = 7.9 K/UL 3.5-11.0 1001) RBC (test code = 4.41 M/UL 4.50-6.10 L 1002) HEMOGLOBIN (test code 12.8 G/DL 13.5-17.0 L = 1003) HEMATOCRIT (test code 38.1 % 40.0-51.0 L = 1004) MCV (test code = 86.4 fL 80.0-99.0 1005) MCH (test code = 29.0 PG 25.0-33.0 1006) MCHC (test code = 33.6 G/DL 31.0-36.0 1007) RDW (test code = 12.8 % 11.5-15.0 1038) NEUTROPHILS (test 64.1 % code = 1008) LYMPHOCYTES (test 24.7 % code = 1010) MONOCYTES (test code 8.6 % = 1011) EOSINOPHILS (test 1.8 % code = 1012) BASOPHILS (test code 0.5 % = 1013) IMMATURE GRANULOCYTES 0.3 % (test code = 1036) NUCLEATED RBCS (test 0.0 /100 WBC'S See_Comment [Aut omated code = 1065) message] The sy stem which generated this result transmitted reference range : 0.0. The refere nce range was not u sed to interpret th is result as normal/abnormal . PLATELET COUNT (test 244 K/UL 130-400 code = 1015) ABSOLUTE NEUTROPHILS 5.07 K/UL 1.50-7.50 (test code = 1066) ABSOLUTE LYMPHOCYTES 1.95 K/UL 1.00-4.00 (test code = 1067) ABSOLUTE MONOCYTES 0.68 K/UL 0.2-3.8 (test code = 1068) ABSOLUTE EOSINOPHILS 0.14 K/UL 0.00-0.50 (test code = 1040) ABSOLUTE BASOPHILS 0.04 K/UL 0.00-0.20 (test code = 1069) ABS IMMATURE 0.02 K/UL 0.00-0.10 GRANULOCYTES (test code = 1020) ABS NUCLEATED RBCS 0.00 K/UL 0.00-0.11 (test code = 18121) OCCULT BLD,FECAL,IMMUNOASSAY [id number] 16:08:46 Test Item Value Reference Range Interpretation Comments OCCULT BLD, FECAL NEGATIVE NEGATIVE Note: Latricia capps received (test code = 20924) in an ex pired collection system. Results and details of anal ysis reviewed by [facility] DARÍO REYNAGA M.D. UNLESS OTHERWISE INDIC ATED, ALL TESTING PERFORM ED ATCLINICAL PATH [facility]Y LABORATORIES, [address] [address] LABORATORY DIRE CTOR: Jim HARDY CLIA NUMBER [id number] CAP ACCREDITATION N O. [id number] COMPREHENSIVE METABOLIC [id number] 02:04:03 Test Item Value Reference Range Interpretation Comments GLUCOSE (test code = 121 MG/DL 70-99 H 2216) BUN (test code = 22 MG/DL 6-20 H 2207) CREATININE (test 1.46 MG/DL 0.80-1.40 H code = 2214) eGFR (2020 CKD-EPI) 55 ML/MIN/1.73 >60 L (test code = 59951) CALC BUN/CREAT (test 15 RATIO 6-28 code = 2235) SODIUM (test code = 142 MEQ/L 080-659 5601) POTASSIUM (test code 4.4 MEQ/L 3.5-5.4 = 2228) CHLORIDE (test code 106 MEQ/L 95-107 = 2215) CARBON DIOXIDE (test 20 MEQ/L 19-31 code = 2206) CALCIUM (test code = 9.4 MG/DL 8.5-10.5 2209) PROTEIN, TOTAL (test 7.0 G/DL 6.1-8.3 code [...] PHOSPHATASE 74 U/L 40-123 (test code = 220) AST (test code = 33 U/L 9-50 2217) ALT (test code = 55 U/L 5-50 H 2218) LIPID [id number] 02:04:03 Test Item Value Reference Range Interpretation [...] MOREINFORMATION , SEE CLIENT ANNOUNCE MENT AT [email or web address] [email or web address] LDL/HDL 1.57 RATIO <3.55 UNLESS O THERWISE (test code = 2238) INDICATED , ALL TESTING PERFORMED [facility], [place]. [address] [facility] [place] [address] ELLIOT GLORIA DIRECTOR: Cristel HARDYIA NUMBER [id number] CAP ACCREDITATION N O. [id number]
--- NOTE | 2023-04-30 00:41 | EDPHYS ---
Physician Documentation [facility] Name: Jabier Bright Age: 57 yrs Sex: Male : 1965 Arrival Date: 04/29/2023 Time: 21:49 Bed 5 Private MD: ED Physician Angel Barba HPI: 04/29 22:38 This 57 yrs old Male presents to ER via Ambulatory with complaints of POST snw SURGICAL BRUISING. 22:38 The patient presents with swelling. The complaints affect the right quadriceps and snw right santana. Onset: The symptoms/episode began/occurred acutely. Associated signs and symptoms: The patient has no apparent associated signs or symptoms. The patient has experienced a previous episode. as noted. knee surgery 2nd to arthritis on right knee [address] Parson. Hx of left knee surgery remotely. Historical: - Allergies: 22:10 No Known Allergies; as6 - PMHx: 22:10 Gout; Hypertension; as6 - PSHx: 22:10 knee; as6 - Immunization history:: Client reports having NOT received the Covid vaccine. - Social history:: Smoking status: Patient denies any tobacco usage or history of. ROS: 22:37 Constitutional: Negative for fever, chills, and weight loss, Eyes: Negative for injury, snw pain, redness, and discharge, ENT: Negative for injury, pain, and discharge, Neck: Negative for injury, pain, and swelling, Cardiovascular: Negative for chest pain, palpitations, and edema, Respiratory: Negative for shortness of breath, cough, wheezing, and pleuritic chest pain, Abdomen/GI: Negative for abdominal pain, nausea, vomiting, diarrhea, and constipation, Back: Negative for injury and pain, : Negative for injury, bleeding, discharge, and swelling, Skin: Negative for injury, rash, and discoloration, Neuro: Negative for headache, weakness, numbness, tingling, and seizure, Psych: Negative for depression, anxiety, suicide ideation, homicidal ideation, and hallucinations. 22:37 MS/extremity: Positive for knee surgery on Mon with Dr. Parson, pt feeling good but would like to have his leg checked 2nd to bruising. Denies pain. Exam: 22:35 Constitutional: This is a well developed, well nourished patient who is awake, alert, snw and in no acute distress. Head/Face: Normocephalic, atraumatic. Eyes: Pupils equal round and reactive to light, extra-ocular motions intact. Lids and lashes normal. Conjunctiva and sclera are non-icteric and not injected. Cornea within normal limits. Periorbital areas with no swelling, redness, or edema. ENT: Nares patent. No nasal discharge, no septal abnormalities noted. Tympanic membranes are normal and external auditory canals are clear. Oropharynx with no redness, swelling, or masses, exudates, or evidence of obstruction, uvula midline. Mucous membranes moist. Neck: Trachea midline, no thyromegaly or masses palpated, and no cervical lymphadenopathy. Supple, full range of motion without nuchal rigidity, or vertebral point tenderness. No Meningismus. Chest/axilla: Normal chest wall appearance and motion. Nontender with no deformity. No lesions are appreciated. Cardiovascular: Regular rate and rhythm with a normal S1 and S2. No gallops, murmurs, or rubs. Normal PMI, no JVD. No pulse deficits. Respiratory: Lungs have equal breath sounds bilaterally, clear to auscultation and percussion. No rales, rhonchi or wheezes noted. No increased work of breathing, no retractions or nasal flaring. Abdomen/GI: Soft, non-tender, with normal bowel sounds. No distension or tympany. No guarding or rebound. No evidence of tenderness throughout. Back: No spinal tenderness. No costovertebral tenderness. Full range of motion. Neuro: Awake and alert, GCS 15, oriented to person, place, time, and situation. Cranial nerves II-XII grossly intact. Motor strength 5/5 in all extremities. Sensory grossly intact. Cerebellar exam normal. Normal gait. Psych: Awake, alert, with orientation to person, place and time. Behavior, mood, and affect are within normal limits. 22:35 Musculoskeletal/extremity: Extremities: grossly normal except: noted in the right leg: swelling, Circulation is intact in all extremities. Sensation intact. 22:35 Skin: Appearance: normal except for affected area, surgical incision to right knee, bandage intact, right lower ext with edema and significant ecchymosis post surgery. Pt would just like to make sure everything is okay. . Vital Signs: 22:06 BP 158 / 95; Pulse 97; Resp 18 S; Temp 99.3(O); Pulse Ox 98% on R/A; Weight 99.79 kg as6 (R); Height 5 ft. 6 in. (R); Pain 0/10; 23:18 Pulse 95; Pulse Ox 98% on R/A; kd3 22:06 Body Mass Index 35.51 (99.79 kg, 167.64 cm) as6 22:06 Pain Scale: Adult as6 MDM: 22:12 Patient medically screened. snw 22:39 Differential diagnosis: DVT. Data reviewed: vital signs, nurses notes. Counseling: I snw had a detailed discussion with the patient and/or guardian regarding: the historical points, exam findings, and any diagnostic results supporting the discharge/admit diagnosis, the presence of at least one elevated blood pressure reading (>120/80) during this emergency department visit, radiology results. Special discussion: I have referred the patient to see his PCP for further evaluation of high blood pressure. Based on the history and exam findings, there is no indication for further emergent testing or inpatient evaluation. I discussed with the patient/guardian the need to see the orthopedic surgeon for further evaluation of the symptoms. I discussed with the patient/guardian the need to see the primary care provider for further evaluation of the symptoms. 04/29 22:17 Order name: US Extremity Venous Unilateral Ltd snw 04/30 00:38 Order name: Dane wrap-joint; Complete Time: 00:54 snw Administered Medications: No medications were administered Disposition: 04/30 03:08 Co-signature as Attending Physician, Angel Barba MD I agree with the assessment sp4 and plan of care. I reviewed the patient's care provided by the Advanced Practice Provider and agree with the diagnosis and treatment plan. Disposition Summary: 04/30/23 00:40 Discharge Ordered Location: Home snw Condition: Stable snw Diagnosis - Contusion of right knee snw Followup: snw - With: Eliazar Parson MD - When: 2 - 3 days - Reason: Recheck today's complaints, Continuance of care, Re-evaluation by your physician Discharge Instructions: - Discharge Summary Sheet snw - How to Use a Knee Brace snw - Knee Rehabilitation in the Home snw - Partial Knee Replacement, Care After snw Forms: - Medication Reconciliation Form snw - Thank You Letter snw - Antibiotic Education snw - Prescription Opioid Use snw - [email or web address] sn Signatures: Dispatcher [employer] Chelsi Almeida FNP-C FNP-Filiberto Arce, RN RN as6 Angel Barba MD MD sp4
--- NOTE | 2023-04-30 00:41 | ER ---
Nurse's Notes [facility] Name: Jabier Bright Age: 57 yrs Sex: Male : 1965 Arrival Date: 04/29/2023 Time: 21:49 Bed 5 Private MD: Diagnosis: Contusion of right knee Presentation: 04/29 22:06 Chief complaint: Patient states: pt had knee surgery Monday and noticed bruising as6 above and below dressing and wanted to get it checked out. Coronavirus screen: At this time, the client does not indicate any symptoms associated with coronavirus-19. Ebola Screen: No symptoms or risks identified at this time. Initial Sepsis Screen: Does the patient meet any 2 criteria? No. Patient's initial sepsis screen is negative. Does the patient have a suspected source of infection? No. Patient's initial sepsis screen is negative. Risk Assessment: Do you want to hurt yourself or someone else? Patient reports no desire to harm self or others. Onset of symptoms was April 29, 2023. 22:06 Acuity: GLENIS 3 as6 22:06 Method Of Arrival: Ambulatory as6 Historical: - Allergies: 22:10 No Known Allergies; as6 - PMHx: 22:10 Gout; Hypertension; as6 - PSHx: 22:10 knee; as6 - Immunization history:: Client reports having NOT received the Covid vaccine. - Social history:: Smoking status: Patient denies any tobacco usage or history of. Screenin:17 [facility] ED Fall Risk Assessment (Adult) History of falling in the last 3 months, kd3 including since admission No falls in past 3 months (0 pts) Confusion or Disorientation No (0 pts) Intoxicated or Sedated No (0 pts) Impaired Gait No (0 pts) Mobility Assist Device Used No (0 pt) Altered Elimination No (0 pt) Score/Fall Risk Level 0 - 2 = Low Risk Maintained a safe environment. Abuse screen: Denies threats or abuse. Denies injuries from another. Nutritional screening: No deficits noted. Tuberculosis screening: No symptoms or risk factors identified. Assessment: 23:17 General: Appears in no apparent distress. Pain: Complains of pain in right santana and kd3 right quadriceps and right leg. Neuro: Level of Consciousness is awake, alert, obeys commands, Oriented to person, place, time, situation. Cardiovascular: Patient's skin is warm and dry. Respiratory: Airway is patent Trachea midline Respiratory effort is even, unlabored, Respiratory pattern is regular, symmetrical. 04/30 00:54 Reassessment: Patient appears in no apparent distress at this time. Patient and/or jb4 family updated on plan of care and expected duration. Pain level reassessed. Patient is alert, oriented x 3, equal unlabored respirations, skin warm/dry/pink. Vital Signs: 04/29 22:06 BP 158 / 95; Pulse 97; Resp 18 S; Temp 99.3(O); Pulse Ox 98% on R/A; Weight 99.79 kg as6 (R); Height 5 ft. 6 in. (R); Pain 0/10; 23:18 Pulse 95; Pulse Ox 98% on R/A; kd3 22:06 Body Mass Index 35.51 (99.79 kg, 167.64 cm) as6 22:06 Pain Scale: Adult as6 ED Course: 21:54 Patient arrived in ED. kj1 22:10 Triage completed. as6 22:10 Arm band placed on. as6 22:11 Chelsi Tripathi FNP-C is PHCP. snw 22:12 Angel Barba MD is Attending Physician. snw 22:12 Aicha Louis, CONSUELO is Primary Nurse. kd3 22:36 US Extremity Venous Unilateral Ltd In Process Unspecified. EDMS 23:17 Patient has correct armband on for positive identification. kd3 04/30 00:38 Eliazar Palacio MD is Referral Physician. snw 00:54 No provider procedures requiring assistance completed. Patient did not have IV access jb4 during this emergency room visit. Administered Medications: No medications were administered Medication: 04/29 23:18 VIS not applicable for this client. kd3 Outcome: 07 00:40 Discharge ordered by . snw 00:54 Discharged to home ambulatory, with family. jb4 00:54 Condition: stable 00:54 Discharge instructions given to patient, Instructed on discharge instructions, follow up and referral plans. Demonstrated understanding of instructions, follow-up care. 00:55 Patient left the ED. jb4 Signatures: Dispatcher [employer] EDTX Chelsi Tripathi FNP-C FNP-Robert Gandhi, RN RN jb4 Kailyn Reed kj1 Filiberto Lisa, RN RN as6 Aicha Louis, RN RN kd3
[2023-04-30 01:15] VITALS: TEMP 98.1; O2SAT 100
[2023-04-30 01:16] VITALS: BP 129/90
--- NOTE | 2023-04-30 21:46 | RAD REPORT ---
EXAM DESCRIPTION: US - Extremity Venous Uni Ltd - 04/29/2023 10:34 pm CLINICAL HISTORY: 57 years Male bruising; Swelling TECHNIQUE: Multiple grayscale, color Doppler and spectral analysis sonographic images of the right l eg were obtained utilizing a high-frequency linear array transducer supplemented with compression and augmentation techniques. COMPARISON: None. FINDINGS: Common femoral, greater saphenous, femoral, popliteal and calf veins shows normal compress ibility, color flow and augmentation. IMPRESSION: No sonographic evidence of deep venous thrombosis. Electronically signed by: Jairo Le MD 04/29/2023 11:12 PM CDT Due to temporary technical issues with the PACS/Fluency reporting system, reports are being signed by the in house radiologists without review as a courtesy to insure prompt reporting. The interpreting radiologist is fully responsible for the content of the report.
== END 2023-04-30 00:55 | disposition home or self-care (01) ==
LOC: ER 21:49
DX: S80.01XA Contusion of right knee, initial encounter (principal); Z98.890 Other specified postprocedural states; I10 Essential (primary) hypertension
CPT/HCPCS: 93971; 99283

== ENCOUNTER 2024-05-02 10:37 | Emergency (ER) | payer OTHER ==
--- OUTSIDE RECORDS SUMMARY | 2024-05-02 10:40 | XMS REPORT | Continuity of Care Document ---
Author Name Unknown Address [address] [facility] [address] [place] [address] [facility] thconnect Address [address] [facility] [address] [place] [address] Care Team Providers Care Roofing Contractor Name Role Phone Jesús Cantu [facility] Physician Nasir Mims Attending Clinician Unavailable Doctor Unassigned, [place] Attending Clinician U Benedict Diaz Attending Clinician [phone] Deena Velasquez MD Attending Clinician [phone] BENEDICT HURTADO Attending Clinician Unavailable DEENA VELASQUEZ Attending Clinician Unavailron cavazos Lab, Ang - Db Attending Clinician Unavailable Omer Coffman MD Attending Clinician [phone] Pob, Adc Lab Main Attending Clinician UnavailOMER Etienne Attending Clinician Unavailable ROHINI FISHER Attending Clinician UnavailRohini Reyes DO Attending Clinician [phone] BENEDICT HURTADO Admitting Clinician Unavailable Payers Payer Name Policy Type Policy Number Effective Date Expirati on Date Source Problems Condition Name Condition Details Condition Category Status Onset Date Resolution Date Last Treatment Date Treating Clinician Comments Source Osteoarthr itis of right knee Osteoarthr itis of right knee Disease Active 04-12 00:00: 00 [facility] No known active problems No known active problems Disease [facility] Allergies, Adverse Reactions, Alerts Allergy Name Allergy Type Status Severity Reaction(s) Onset Date Inactive Date Treating Clinician Comments Source NO KNOWN ALLERGIE S Drug Class Active [facility] Social History Social Habit Start Date Stop Date Quantity Comments Source Gender identity [facility] History of tobacco use Cigarette Smoker [facility] Exposure to SARS-CoV-2 (event) 2023-02-12 00:00:00 2023-02-22 16:15:00 Not sure [facility] History of Social function 2022-12-16 00:00:00 2022-12-16 00:00:00 [facility] Sex Ass[birth year] At 1965 00:00:00 1965 00:00:00 [facility] Smoking Status Start Date Stop Date Source Occasional tobacco smoker 2022-12-22 00:00:00 [facility] Tobacco smoking consumption unknown [facility] Medications Ordered Medication Name Filled Medication Name Start Date Stop Date Current Medication? Ordering Clinician Indication Dosage Frequency Signature (SIG) Comments Components Source DICLOFENAC 75 mg EC tablet 2022-10 00:00: 00 Yes [id number] 4102 TAKE 1 TABLET BY MOUTH TWICE A DAY WITH MEALS [facility] DICLOFENAC 75 mg EC tablet 05-24 00:00: 00 08-01 00:00 :00 No [id number] 4102 TAKE 1 TABLET BY MOUTH TWICE A DAY WITH MEALS [facility] HYDROcodone -acetaminop hen (NORCO) 10-325 mg tablet 04-26 00:00: 00 05-04 04:59 :00 No 4647 1{tbl} Take 1 tablet by mouth every 6 (six) hours as needed for Pain (scale 7-10) for up to 7 days. Indication s: acute pain [facility] DICLOFENAC 75 mg EC tablet 03-21 00:00: 00 05-24 00:00 :00 No [id number] 4102 TAKE 1 TABLET BY MOUTH TWICE A DAY WITH MEALS [facility] HYDROcodone -acetaminop hen (NORCO) 10-325 mg tablet 4-12 00:00: 00 02-16 04:59 :00 No 4647 1{tbl} Take 1 tablet by mouth every 6 (six) hours as needed for Pain (scale 7-10) for up to 7 days. Indication s: acute pain [facility] diclofenac 75 mg EC tablet 01-20 00:00: 00 03-21 00:00 :00 No [id number] 4102 75mg Take 1 tablet by mouth 2 (two) times daily with meals. [facility] lisinopriL 40 mg tablet 11-02 00:00: 00 Yes 20mg Take 20 mg by mouth daily. [facility] amLODIPine 5 mg tablet 11-02 00:00: 00 Yes 5mg Take 5 mg by mouth daily. [facility] No known medications 07-25 13:31: 03 No No known medication s [facility] Vital Signs Vital Name Observation Time Observation Value Comments [facility] Systolic blood pressure 2023-06-09 14:36:00 149 mm[Hg] [facility] Diastolic blood pressure 2023-06-09 14:36:00 93 mm[Hg] [facility] Heart rate 2023-06-09 14:36:00 92 /min [facility] Body height 2023-06-09 14:36:00 167.6 cm [facility] Body weight 2023-06-09 14:36:00 96.299 kg [facility] BMI 2023-06-09 14:36:00 34.27 kg/m2 [facility] Systolic blood pressure 2023-05-10 21:12:00 125 mm[Hg] [facility] Diastolic blood pressure 2023-05-10 21:12:00 80 mm[Hg] [facility] Heart rate 2023-05-10 21:12:00 84 /min [facility] Respiratory rate 2023-05-10 21:12:00 18 /min [facility] Body height 2023-05-10 21:12:00 167.6 cm [facility] Body weight 2023-05-10 21:12:00 98.431 kg [facility] BMI 2023-05-10 21:12:00 35.02 kg/m2 [facility] Oxygen saturation in Arterial blood by Pulse oximetry 2023-05-10 21:12:00 96 /min [place] [facility] Body weight 2023-05-03 19:33:00 97.07 kg [facility] BMI 2023-05-03 19:33:00 34.54 kg/m2 [facility] Systolic blood pressure 2023-04-12 19:43:00 129 mm[facility]Hg[facility] Diastolic blood pressure 2023-04-12 19:43:00 79 mm[Hg] [facility] Heart rate 2023-04-12 19:43:00 85 /min [facility] Body height 2023-04-12 19:43:00 167.6 cm [facility] Body weight 2023-04-12 19:43:00 97.433 kg [facility] BMI 2023-04-12 19:43:00 34.67 kg/m2 [facility] Systolic blood pressure 2023-02-22 21:28:00 129 mm[Hg] [facility] Diastolic blood pressure 2023-02-22 21:28:00 89 mm[Hg] [facility] Heart rate 2023-02-22 21:28:00 102 /min [facility] [place] Body height 2023-02-22 21:28:00 167.6 cm [facility] Body weight 2023-02-22 21:28:00 95.981 kg [facility] BMI 2023-02-22 21:28:00 34.15 kg/m2 [facility] Body height 2023-02-13 21:27:00 167.6 cm [facility] Body weight 2023-02-13 21:27:00 97.523 kg [facility] BMI 2023-02-13 21:27:00 34.70 kg/m2 [facility] Body height 2023-01-20 13:03:00 167.6 cm [facility] Body weight 2023-01-20 13:03:00 97.523 kg [facility] BMI 2023-01-20 13:03:00 34.70 kg/m2 [facility] Systolic blood pressure 2022-12-22 20:48:00 138 mm[Hg] [facility] Diastolic blood pressure 2022-12-22 20:48:00 81 mm[Hg] [facility] Heart rate 2022-12-22 20:48:00 79 /min [facility] Oxygen saturation in Arterial blood by Pulse oximetry 2022-12-22 20:48:00 95 /min [facility] Respiratory rate 2022-12-22 20:42:00 19 /min [facility] Body height 2022-12-22 20:42:00 167.6 cm [facility] Body weight 2022-12-22 20:42:00 97.932 kg [facility] BMI 2022-12-22 20:42:00 34.85 kg/m2 [facility] Body height 2022-12-16 16:11:00 167.6 cm [facility] Body weight 2022-12-16 16:11:00 98.022 kg [facility] BMI 2022-12-16 16:11:00 34.88 kg/m2 [facility] Systolic blood pressure 2022-07-25 18:28:00 161 mm[Hg] [facility] Diastolic blood pressure 2022-07-25 18:28:00 96 mm[Hg] [facility] Heart rate 2022-07-25 18:28:00 100 /min [facility] Body temperature 2022-07-25 18:28:00 37.17 Basilia [facility] Respiratory rate 2022-07-25 18:28:00 15 /min [facility] Body height 2022-07-25 18:28:00 167.6 cm [facility] Body weight 2022-07-25 18:28:00 104.327 kg [facility] BMI 2022-07-25 18:28:00 37.12 kg/m2 [facility] Oxygen saturation in Arterial blood by Pulse oximetry 2022-07-25 18:28:00 97 /min [facility] Procedures Procedure Date / Time Performed Performing Clinician Source DISABILITY/FMLA 2023-08-01 05:01:00 Doctor Unass igned, [place] [facility] AUTHORIZATION FOR RELEASE OF PHI 2023-06-02 05:01:00 Doctor Unassigned, [place] [facility] DISABILITY/FMLA 2023-05-23 05:01:00 Doctor Unass igned, [place] [facility] REFERRAL- REQUEST/RESPONSE 2023-05-01 05:01:00 Doctor Unassigned, [place] [facility] REFERRAL- REQUEST/RESPONSE 2023-04-28 05:01:00 Doctor Unassigned, [place] [facility] OPERATIVE NOTES 2023-04-26 05:01:00 Doctor Unass igned, [place] [facility] DSU PRE-OP 2023-04-24 05:01:00 Doctor Unass igned, [place] [facility] DISABILITY/FMLA 2023-04-21 05:01:00 Doctor Unass igned, [place] [facility] DSU PRE-OP 2023-04-12 05:01:00 Doctor Unass igned, [place] [facility] REFERRAL- REQUEST/RESPONSE 2023-03-23 05:01:00 Doctor Unassigned, [place] [facility] REFERRAL- REQUEST/RESPONSE 2023-02-08 05:01:00 Doctor Unassigned, [place] [facility] XR CHEST 1 VW 2023-01-30 15:17:19 Deena Velasquez [facility] EXTERNAL PROVIDER - ADC CARDIOLOGY 2023-01-11 05:01:00 Doctor Unassigned, [place] [facility] EXTERNAL PROVIDER RECORDS 2023-01-03 06:01:00 Doctor Unassigned, [place] [facility] HB ECG ROUTINE & RHYTHM STRIP 2022-12-22 20:51:43 Omer Coffman [facility] ASSIGNMENT OF BENEFITS 2022-12-16 15:55:04 Docto r Unassigned, [place] [facility] NOTICE OF PRIVACY PRACTICES 2022-07-25 18:16:43 Doctor Unassigned, [place] [facility] CONSENT/REFUSAL FOR DIAGNOSIS AND TREATMENT 2022-07-25 18:14:37 Doctor Unassigned, [place] [facility] Encounters Start Date/Time End Date/Time Encounter Type Admission Type Attending [facility] Facility Care Department Encounter ID Source 2022-07-13 14:45:04 Outpatient Nasir Mims [facility] [id number] [facility] 2024-01-30 16:17:42 2024-01-30 16:17:[address] [facility] [id number] Jesús Carmona 2023-12-26 16:34:26 2023-12-26 16:34:26 Outpatient [facility] [id number] Jesús Carmona 2023-11-27 11:29:08 2023-11-27 11:29:08 Outpatient [facility] [id number] Jesús Carmona 2023-10-12 15:57:34 2023-10-12 15:57:34 Outpatient [facility] [id number] Jesús Carmona 2023-10-11 16:34:24 2023-10-11 16:34:24 Outpatient [facility] [id number] Jesús Carmona 2023-08-23 16:00:52 2023-08-23 16:00:52 Outpatient [facility] [id number] Jesús Carmona 2023-08-01 00:00:00 2023-08-01 00:00:00 Orders Only Doctor Unassigned, [place] [facility] 1..840.114 350.1.13.10 4.2.7.2.686 [id number] [facility] 2023-07-30 00:00:00 2023-07-30 00:00:00 Benedict Flood [facility] 1..840.114 350.1.13.10 4.2.7.2.686 [id number] [facility] 2023-07-29 13:23:00 2023-07-29 13:23:00 Outpatient S[facility] [id number] Jesús Carmona 2023-06-16 00:00:00 2023-06-16 00:00:00 Telephone Deena Velasquez [facility] [place] 1.84114 350.1.13.10 4.2.7.2.686 [id number] [facility] 2023-06-15 13:27:27 2023-06-15 13:27:27 Outpatient SFA [facility] [id number] Jesús Carmona 2023-06-14 00:00:00 2023-06-14 00:00:00 Telephone Deena Velasquez [facility] [place] 1.84.114 350.1.13.10 4.2.7.2.686 [id number] [facility] 2023-06-09 08:30:00 2023-06-09 10:02:42 Outpatient R BRYANT BENEDICT [facility] [id number] [facility] 2023-06-09 08:30:00 2023-06-09 10:02:42 Office Visit Bryant Benedict [facility] 1.84.114 350.1.13.10 4.2.7.2.686 [id number] [facility] 2023-06-02 00:00:00 2023-06-02 00:00:00 Telephone Bryant Benedict [facility] [place] 1.84114 350.1.13.10 4.2.7.2.686 [id number] [facility] 2023-06-02 00:00:00 2023-06-02 00:00:00 Orders Only Doctor Unassigned, [place] [facility] 1.114 350.1.13.10 4.2.7.2.686 [id number] [facility] 2023-05-23 00:00:00 2023-05-23 00:00:00 Orders Only Doctor Unassigned, [place] [facility] 1.2.840.114 350.1.13.10 4.2.7.2.686 [id number] [facility] 2023-05-22 00:00:00 2023-05-22 00:00:00 Telephone Bryant [facility] [place] 1..840.114 350.1.13.10 4.2.7.2.686 [id number] [facility] 2023-05-22 00:00:00 2023-05-22 00:00:00 Refill Bryant [facility] [place]?[facility] 1..840.114 350.1.13.10 4.2.7.2.686 [id number] [facility] 2023-05-22 00:00:00 2023-05-22 00:00:00 Telephone Deena Vel[facility]quez [facility] 1.2.840.114 350.1.13.10 4.2.7.2.686 [id number] [facility] 2023-05-10 16:15:00 2023-05-10 23:59:00 Outpatient R BRYANT [facility] [id number] [facility] 2023-05-10 16:00:00 2023-05-10 16:15:00 [facility] 1.2.840.114 350.1.13.10 4.2.7.2.686 [id number] [facility] 2023-05-03 14:45:00 2023-05-03 15:09:56 Outpatient R FERN VELASQUEZIG [facility] [id number] [facility] 2023-05-03 14:45:00 2023-05-03 15:09:56 Office Visit Deena Velasquez [facility] 1.2.840.114 350.1.13.10 4.2.7.2.686 [id number] [facility] 2023-05-03 14:45:00 2023-05-03 14:45:00 Outpatient R DEENA VELASQUEZ [facility] [id number] [facility] 2023-05-01 14:00:00 2023-05-01 14:00:00 Outpatient R DEENA VELASQUEZ [facility] [id number] [facility] 2023-05-01 00:00:00 2023-05-01 00:00:00 Orders Only Doctor Unassigned, [place] [facility] 1..840.114 350.1.13.10 4.2.7.2.686 [id number] [facility] 2023-04-28 00:00:00 2023-04-28 00:00:00 Orders Only Doctor Unassigned, [place] [facility] 1.2.840.114 350.1.13.10 4.2.7.2.686 [id number] [facility] 2023-04-27 12:26:31 2023-04-27 23:59:00 Outpatient R BENEDICT HURTADO [facility] [id number] [facility] 2023-04-27 00:00:00 2023-04-27 00:00:00 Telephone Benedict Hurtado [facility] 1.2.840.114 350.1.13.10 4.2.7.2.686 [id number] [facility] 2023-04-26 20:49:00 2023-04-26 23:59:00 Hospital Encounter Deena Velasquez [facility] 1.2840.114 350.1.13.10 4.2.7.2.686 [id number] [facility] 2023-04-26 00:00:00 2023-04-26 23:59:00 Outpatient R DEENA VELASQUEZ [facility] [id number] [facility] 2023-04-26 00:00:00 2023-04-26 00:00:00 Orders Only Doctor Unassigned, [place] [facility] 1.2840.114 350.1.13.10 4.2.7.2.686 [id number] [facility] 2023-04-26 00:00:00 2023-04-26 00:00:00 Telephone Deena Velasquez [facility] 1.840.114 350.1.13.10 4.2.7.2.686 [id number] [facility] 2023-04-25 14:15:29 2023-04-25 14:15:[address] [facility] [id number] Jesús Carmona 2023-04-24 14:45:00 2023-04-24 14:45:00 Outpatient R DEENA VELASQUEZ [facility] [id number] [facility] 2023-04-24 00:00:00 2023-04-24 00:00:00 Telephone Deena Velasquez [facility] 1.2840.114 350.1.13.10 4.2.7.2.686 [id number] [facility] 2023-04-24 00:00:00 2023-04-24 00:00:00 Orders Only Doctor Unassigned, [place] [facility] 1.2840.114 350.1.13.10 4.2.7.2.686 [id number] [facility] 2023-04-21 00:00:00 2023-04-21 00:00:00 Telephone Deena Velasquez [facility] 1.2.840.114 350.1.13.10 4.2.7.2.686 [id number] [facility] 2023-04-21 00:00:00 2023-04-21 00:00:00 Orders Only Doctor Unassigned, [place] [facility] 1.2.840.114 350.1.13.10 4.2.7.2.686 [id number] [facility] 2023-04-20 00:00:00 2023-04-20 00:00:00 Telephone Deena Velasquez [facility] 1.2.840.114 350.1.13.10 4.2.7.2.686 [id number] [facility] 2023-04-18 00:00:00 2023-04-18 00:00:00 Telephone Benedict Hurtado [facility] 1.2.840.114 350.1.13.10 4.2.7.2.686 [id number] [facility] 2023-04-12 15:30:00 2023-04-12 15:45:00 Director Nicu Visit Lab, Ang - Deena Farley [facility] 1.2.840.114 350.1.13.10 4.2.7.2.686 [id number] [facility] 2023-04-12 14:30:00 2023-04-12 15:26:34 Outpatient R DEENA VELASQUEZ [facility] [id number] [facility] 2023-04-12 14:30:00 2023-04-12 15:26:34 Office Visit Deena Velasquez [facility] 1.0.114 350.1.13.10 4.2.7.2.686 [id number] [facility] 2023-04-12 00:00:00 2023-04-12 00:00:00 Telephone Deena Velasquez [facility] 1.840.114 350.1.13.10 4.2.7.2.686 [id number] [facility] 2023-04-12 00:00:00 2023-04-12 00:00:00 Orders Only Doctor Unassigned, [place] [facility] 1.840.114 350.1.13.10 4.2.7.2.686 [id number] [facility] 2023-04-03 16:15:00 2023-04-03 16:15:00 Outpatient BENEDICT RODRIGUEZ [facility] [id number] [facility] 2023-03-23 00:00:00 2023-03-23 00:00:00 Orders Only Doctor Unassigned, [place] [facility] 1.840.114 350.1.13.10 4.2.7.2.686 [id number] [facility] 2023-03-18 00:00:00 2023-03-18 00:00:00 Refill Deena Velasquez [facility] 1.0.114 350.1.13.10 4.2.7.2.686 [id number] [facility] 2023-02-24 00:00:00 2023-02-24 00:00:00 Telephone Deena Velasquez [facility] 1.840.114 350.1.13.10 4.2.7.2.686 [id number] [facility] 2023-02-22 16:28:40 2023-02-22 23:59:00 Outpatient R BENEDICT HURTADO [facility] [id number] [facility] 2023-02-22 16:15:00 2023-02-22 16:30:00 [facility] 1..114 350.1.13.10 4.2.7.2.686 [id number] [facility] 2023-02-13 16:15:00 2023-02-13 16:50:49 Outpatient R BENEDICT HURTADO [facility] [id number] [facility] 2023-02-13 16:15:00 2023-02-13 16:50:49 Office Visit Bryant [facility] [place]?[facility] 1.114 350.1.13.10 4.2.7.2.686 [id number] [facility] 2023-02-10 00:00:00 2023-02-10 00:00:00 Telephone Deena Velasquez [facility] [place] 1..114 350.1.13.10 4.2.7.2.686 [id number] [facility] 2023-02-08 00:00:00 2023-02-08 00:00:00 Telephone Deena Velasquez [facility] [place]?[facility] 1..114 350.1.13.10 4.2.7.2.686 [id number] [facility] 2023-02-08 00:00:00 2023-02-08 00:00:00 Orders Only Doctor Unassigned, [place] [facility] 1..114 350.1.13.10 4.2.7.2.686 [id number] [facility] 2023-02-06 00:00:00 2023-02-06 00:00:00 Prep For Surgery Alice Hurtadohammad Londono [facility] 1.2.840.114 350.1.13.10 4.2.7.2.686 [id number] [facility] 2023-01-31 00:00:00 2023-01-31 00:00:00 Telephone Dung Coffmanmarcus [facility] 1..840.114 350.1.13.10 4.2.7.2.686 [id number] [facility] 2023-01-30 10:30:00 2023-01-30 10:45:00 Director Nicu Visit Pob, Adc Lab Main Deena Velasquez [facility] BUILD[facility] 1..840.114 350.1.13.10 4.2.7.2.686 [id number] [facility] 2023-01-30 09:54:29 2023-01-30 09:56:00 Hospital Encounter Deena Velasquez [facility] 1.2.840.114 350.1.13.10 4.2.7.2.686 [id number] [facility] 2023-01-30 08:39:50 2023-01-30 09:53:00 Outpatient R OMER [facility] [id number] [facility] 2023-01-26 00:00:00 2023-01-26 00:00:00 Telephone Deena Velasquez [facility] 1.2.840.114 350.1.13.10 4.2.7.2.686 [id number] [facility] 2023-01-25 00:00:00 2023-01-25 00:00:00 [facility] 1.840.114 350.1.13.10 4.2.7.2.686 [id number] [facility] 2023-01-20 08:30:00 2023-01-20 09:14:26 Office Visit Deena Velasquez [facility] OFFICE BUILDING 1.2840.114 350.1.13.10 4.2.7.2.686 [id number] [facility] 2023-01-20 08:30:00 2023-01-20 09:14:26 [facility] [id number] [facility] 2023-01-19 09:00:00 2023-01-19 09:00:00 [facility] [id number] [facility] 2023-01-12 00:00:00 2023-01-12 00:00:00 [facility] OFFICE BUILDING 1.2840.114 350.1.13.10 4.2.7.2.686 [id number] [facility] 2023-01-11 16:00:00 2023-01-11 16:00:00 [facility] [id number] [facility] 2023-01-11 00:00:00 2023-01-11 00:00:00 Orders Only Doctor Unassigned, [place] [facility] 1.20.114 350.1.13.10 4.2.7.2.686 [id number] 009 [id number] [facility] 2023-01-03 00:00:00 2023-01-03 00:00:00 Orders Only Doctor Unassigned, [place] [facility] 1.2840.114 350.1.13.10 4.2.7.2.686 [id number] [facility] 2022-12-30 00:00:00 2022-12-30 00:00:00 Telephone Deena Velasquez [facility] OFF[facility] BUILD[facility] 1..840.114 350.1.13.10 4.2.7.2.686 [id number] [facility] 2022-12-28 16:47:04 2022-12-28 16:47:[address] [facility] [id number] 0301 Jesús Carmona 2022-12-22 14:40:00 2022-12-22 15:04:22 Outpatient R MEGHNA [facility] [id number] [facility] 2022-12-22 14:40:00 2022-12-22 15:04:22 [facility] 1.840.114 350.1.13.10 4.2.7.2.686 [id number] [facility] 2022-12-16 11:00:00 2022-12-16 11:53:49 Outpatient R RON DEENA [facility] [id number] [facility] 2022-12-16 11:00:00 2022-12-16 11:53:49 Office Visit Deena Velasquez [facility] OFF[facility] BUILD[facility] 1.840.114 350.1.13.10 4.2.7.2.686 [id number] [facility] 2022-12-16 00:00:00 2022-12-16 00:00:00 Orders Only Doctor Unassigned, [place] [facility] 1.840.114 350.1.13.10 4.2.7.2.686 [id number] 009 [id number] [facility] 2022-11-16 17:15:54 2022-11-16 17:15:[address] [facility] [id number] Jesús Carmona 2022-11-02 17:10:25 2022-11-02 17:10:25 Outpatient [facility] [id number] Jesús Carmona 2022-07-25 13:29:00 2022-07-25 14:10:00 Emergency ROHINI GARZA [facility] ERT [id number] [facility] 2022-07-25 13:29:00 2022-07-25 14:10:00 Emergency Rohini Fisher [facility] 1.2.840.114 350.1.13.10 4.2.7.2.686 [id number] [facility] Results Test Description Test Time Test Comments Results Result Co mments Source COMPREHENSIVE METABOLIC [id number] 06:12:13* Test Item Value Reference Range Interpretation Comme nts GLUCOSE (test code = 2217) 150 MG/DL 70-99 H BUN (test code = 2208) 24 MG/DL 8-23 H CREATININE (test code = 2214) 0.99 MG/DL 0.80-1.40 eGFR (2020 CKD-EPI) (test code = 56251) 87 ML/MIN/1.73 >60 CALC BUN/CREAT (test code = 2235) 24 RATIO 6-28 SODIUM (test code = 2231) 144 MEQ/L 133-146 POTASSIUM (test code = 2228) 4.2 MEQ/L 3.5-5.4 CHLORIDE (test code = 2215) 107 MEQ/L 95-107 CARBON DIOXIDE (test code = 2206) 24 MEQ/L 19-31 CALCIUM (test code = 2209) 9.3 MG/DL 8.5-10.5 PROTEIN, TOTAL (test code = 2229) 7.4 G/DL 6.1-8.3 ALBUMIN (test code = 2201) 4.7 G/DL 3.5-5.2 CALC GLOBULIN (test code = 2240) 2.7 G/DL 1.9-3.7 CALC A/G RATIO (test code = 2234) 1.7 RATIO 1.0-2.6 BILIRUBIN, TOTAL (test code = 2207) <0.2 MG/DL <=1.2 ALKALINE PHOSPHATASE (test code = 2204) 119 U/L 40-123 AST (test code = 2218) 16 U/L 9-50 ALT (test code = 2219) 13 U/L 5-50 UNLESS OTHERWISE INDICATED, ALL TESTING PERFORMED AT CLINICAL PATHOLOGY [facility] [address] [place], [place] [address] DIAPER MACHINE TENDER: VALERIE REYNAGA M.D. CLIA NUMBER [id number] [place]. [id number] HEMOGLOBIN [id number] 02:41:07* Test Item Value Reference Range Interpretation Comme nts HEMOGLOBIN A1c (test code = 26232) 6.2 % 4.2-5.6 H [employer] S [employer]IATION GUIDELINES FOR HGB A1C: PREDIABETES/INCREASED RISK . . . . . . . 5.7-6.4% DIAGNOSIS OF DIABETES . . . . . . . . . >=6.5% WITH CONFIRMATION OR APPROPRIATE SYMPTOMS NOTE: ASSAY MAY BE AFFECTED BY HEMOGLOBINOPATHIES (SICKLE CELL ANEMIA, S-C DISEASE, OTHERS) OR ARTIFICIALLY LOWERED BY DECREASED RED CELL SURVIVAL (HEMOLYTIC ANEMIAS, BLOOD LOSS, ETC.). CONSIDER ALTERNATE TESTING OR LABORATORY CONSULTATION. HEMOGLOBIN [id number] 02:10:13* Test Item Value Reference Range Interpretation Comme nts HEMOGLOBIN A1c (test code = 25548) 6.2 % 4.2-5.6 H [employer]IATION GUIDELINES FOR HGB A1C: PREDIABETES/INCREASED RISK . . . . . . . 5.7-6.4% DIAGNOSIS OF DIABETES . . . . . . . . . >=6.5% WITH CONFIRMATION OR APPROPRIATE SYMPTOMS NOTE: ASSAY MAY BE AFFECTED BY HEMOGLOBINOPATHIES (SICKLE CELL ANEMIA, S-C DISEASE, OTHERS) OR ARTIFICIALLY LOWERED BY DECREASED RED CELL SURVIVAL (HEMOLYTIC ANEMIAS, BLOOD LOSS, ETC.). CONSIDER ALTERNATE TESTING OR LABORATORY CONSULTATION. UNLESS OTHERWISE INDICATED, ALL TESTING PERFORMED AT CLINICAL PATHOLOGY [facility] [address] [place] [address] DIAPER MACHINE TENDER: VALEIRE REYNAGA M.D. CLIA NUMBER [id number] [place]. [id number] CBC W/AUTO DIFF WITH [id number] 01:50:03* Test Item Value Reference Range Interpretation Comme nts WBC (test code = 1001) 7.5 K/UL 3.5-11.0 RBC (test code = 1002) 3.84 M/UL 4.50-6.10 L HEMOGLOBIN (test code = 1003) 11.5 G/DL 13.5-17.0 L HEMATOCRIT (test code = 1004) 34.1 % 40.0-51.0 L MCV (test code = 1005) 88.8 fL 80.0-99.0 MCH (test code = 1006) 29.9 PG 25.0-33.0 MCHC (test code = 1007) 33.7 G/DL 31.0-36.0 RDW (test code = 1038) 13.5 % 11.5-15.0 NEUTROPHILS (test code = 1008) 49.5 % LYMPHOCYTES (test code = 1010) 35.1 % MONOCYTES (test code = 1011) 9.9 % EOSINOPHILS (test code = 1012) 4.2 % BASOPHILS (test code = 1013) 0.8 % IMMATURE GRANULOCYTES (test code = 1036) 0.5 % NUCLEATED RBCS (test code = 1065) 0.0 /100 WBC'S See_Comment [Automated G3a ge] The system which generated this result transmitted reference range: 0.0. The reference range was not used to interpret this result as normal/abnormal. PLATELET COUNT (test code = 1015) 297 K/UL 130-400 ABSOLUTE NEUTROPHILS (test code = 1066) 3.69 K/UL 1.50-7.50 ABSOLUTE LYMPHOCYTES (test code = 1067) 2.62 K/UL 1.00-4.00 ABSOLUTE MONOCYTES (test code = 1068) 0.74 K/UL 0.20-1.00 ABSOLUTE EOSINOPHILS (test code = 1040) 0.31 K/UL 0.00-0.50 ABSOLUTE BASOPHILS (test code = 1069) 0.06 K/UL 0.00-0.20 ABS IMMATURE GRANULOCYTES (test code = 1020) 0.04 K/UL 0.00-0.10 ABS NUCLEATED RBCS (test code = 69622) 0.00 K/UL 0.00-0.11 H. PYLORI (BREATH)2023-08-01 17:00:25* Test Item Value Reference Range Interpretation Comme nts H. PYLORI (BREATH) (test code = 58579) POSITIVE NEGATIVE A UNLESS OTHER PERALTA INDICATED, ALL TESTING PERFORMED AT [facility] [address] [place] [address] DIAPER MACHINE TENDER: VALERIE REYNAGA M.D. CLIA NUMBER [id number] [facility] [place]. [id number] LIPID [id number] 05:52:11* Test Item Value Reference Range Interpretation Comme nts CHOLESTEROL (test code = 2210) 161 MG/DL <200 TRIGLYCERIDES (test code = 2232) 246 MG/DL <150 H HDL CHOLESTEROL (test code = 2220) 31 MG/DL >39 L CALC LDL CHOL (test code = 2237) 93 MG/DL <100 NOTE: CALCULATED LDL IS BASED ON JOVANNY-MCFARLANE METHOD WHICHINCLUDES ADJUSTABLE TRIGLYCERIDE:VLDL CHOLESTEROL RATIO.THIS FACTOR VARIES BY MEASURED TRIGLYCERIDE AND NON-HDLCHOLESTEROL CONCENTRATIONS WITH INCREASED CALCULATED LDL SEENIN HIGHER TRIGLYCERIDE OR LOWER NON-HDL SPECIMENS. FOR MOREINFORMATION, SEE CLIENT ANNOUNCEMENT AT [email or web address] RISK RATIO LDL/HDL (test code = 2238) 3.00 RATIO <3.55 COMPREHENSIVE METABOLIC [id number] 05:52:11* Test Item Value Reference Range Interpretation Comme nts GLUCOSE (test code = 2217) 95 MG/DL 70-99 BUN (test code = 2208) 17 MG/DL 6-20 CREATININE (test code = 2214) 1.08 MG/DL 0.80-1.40 eGFR (2020 CKD-EPI) (test code = 31573) 79 ML/MIN/1.73 >60 CALC BUN/CREAT (test code = 2235) 16 RATIO 6-28 SODIUM (test code = 223) 142 MEQ/L 133-146 POTASSIUM (test code = 2228) 4.6 MEQ/L 3.5-5.4 CHLORIDE (test code = 2215) 105 MEQ/L 95-107 CARBON DIOXIDE (test code = 2206) 27 MEQ/L 19-31 CALCIUM (test code = 2209) 9.6 MG/DL 8.5-10.5 PROTEIN, TOTAL (test code = 222) 7.4 G/DL 6.1-8.3 ALBUMIN (test code = 2201) 4.6 G/DL 3.5-5.2 CALC GLOBULIN (test code = 2240) 2.8 G/DL 1.9-3.7 CALC A/G RATIO (test code = 2234) 1.6 RATIO 1.0-2.6 BILIRUBIN, TOTAL (test code = 2207) 0.3 MG/DL See_Comment [Automated me ssage] The system which generated this result transmitted reference range: <=1.2. The reference range was not used to interpret this result as normal/abnormal. ALKALINE PHOSPHATASE (test code = 2204) 111 U/L 40-123 AST (test code = 2218) 16 U/L 9-50 ALT (test code = 2219) 15 U/L 5-50 UNLESS OTHERWISE INDICATED, ALL TESTING PERFORMED AT CLINICAL PATHOLOGY [facility] [address] [place] [address] DIAPER MACHINE TENDER: VALERIE REYNAGA M.D. CLIA NUMBER [id number] [facility] [place]. [id number] HEMOGLOBIN [id number] 02:30:31* Test Item Value Reference Range Interpretation Comme nts HEMOGLOBIN A1c (test code = 23236) 6.1 % 4.2-5.6 H [employer] S ASSOCIATION GUIDELINES FOR HGB A1C: PREDIABETES/INCREASED RISK . . . . . . . 5.7-6.4% DIAGNOSIS OF DIABETES . . . . . . . . . >=6.5% WITH CONFIRMATION OR APPROPRIATE SYMPTOMS NOTE: ASSAY MAY BE AFFECTED BY HEMOGLOBINOPATHIES (SICKLE CELL ANEMIA, S-C DISEASE, OTHERS) OR ARTIFICIALLY LOWERED BY DECREASED RED CELL SURVIVAL (HEMOLYTIC ANEMIAS, BLOOD LOSS, ETC.). CONSIDER ALTERNATE TESTING OR LABORATORY CONSULTATION. CBC W/AUTO DIFF WITH [id number] 01:59:46* Test Item Value Reference Range Interpretation Comme nts WBC (test code = 1001) 7.9 K/UL 3.5-11.0 RBC (test code = 1002) 4.41 M/UL 4.50-6.10 L HEMOGLOBIN (test code = 1003) 12.8 G/DL 13.5-17.0 L HEMATOCRIT (test code = 1004) 38.1 % 40.0-51.0 L MCV (test code = 1005) 86.4 fL 80.0-99.0 MCH (test code = 1006) 29.0 PG 25.0-33.0 MCHC (test code = 1007) 33.6 G/DL 31.0-36.0 RDW (test code = 1038) 12.8 % 11.5-15.0 NEUTROPHILS (test code = 1008) 64.1 % LYMPHOCYTES (test code = 1010) 24.7 % MONOCYTES (test code = 1011) 8.6 % EOSINOPHILS (test code = 1012) 1.8 % BASOPHILS (test code = 1013) 0.5 % IMMATURE GRANULOCYTES (test code = 1036) 0.3 % NUCLEATED RBCS (test code = 1065) 0.0 /100 WBC'S See_Comment [Automated G3a ge] The system which generated this result transmitted reference range: 0.0. The reference range was not used to interpret this result as normal/abnormal. PLATELET COUNT (test code = 1015) 244 K/UL 130-400 ABSOLUTE NEUTROPHILS (test code = 1066) 5.07 K/UL 1.50-7.50 ABSOLUTE LYMPHOCYTES (test code = 1067) 1.95 K/UL 1.00-4.00 ABSOLUTE MONOCYTES (test code = 1068) 0.68 K/UL 0.2-3.8 ABSOLUTE EOSINOPHILS (test code = 1040) 0.14 K/UL 0.00-0.50 ABSOLUTE BASOPHILS (test code = 1069) 0.04 K/UL 0.00-0.20 ABS IMMATURE GRANULOCYTES (test code = 1020) 0.02 K/UL 0.00-0.10 ABS NUCLEATED RBCS (test code = 74896) 0.00 K/UL 0.00-0.11 OCCULT BLD,FECAL,IMMUNOASSAY [id number] 16:08:46* Test Item Value Reference Range Interpretation Comme nts OCCULT BLD, FECAL (test code = 98131) NEGATIVE NEGATIVE Note: Specim en received in an collection system. Results and details of analysis reviewed by VALERIE REYNAGA M.D. UNLESS OTHERWISE INDICATED, ALL TESTING PERFORMED [facility] [address] [place] [address] DIAPER MACHINE TENDER: YAYA DIOP M.D. CLIA NUMBER [id number] [facility] [place]. [id number] COMPREHENSIVE METABOLIC [id number] 02:04:03* Test Item Value Reference Range Interpretation Comme nts GLUCOSE (test code = 2217) 121 MG/DL 70-99 H BUN (test code = 2208) 22 MG/DL 6-20 H CREATININE (test code = 2214) 1.46 MG/DL 0.80-1.40 H eGFR (2020 CKD-EPI) (test code = ) 55 ML/MIN/1.73 >60 L CALC BUN/CREAT (test code = 2234) 15 RATIO 6-28 SODIUM (test code = 2230) 142 MEQ/L 133-146 POTASSIUM (test code = 2227) 4.4 MEQ/L 3.5-5.4 CHLORIDE (test code = 2214) 106 MEQ/L 95-107 CARBON DIOXIDE (test code = 2205) 20 MEQ/L 19-31 CALCIUM (test code = 2208) 9.4 MG/DL 8.5-10.5 PROTEIN, TOTAL (test code = 2228) 7.0 G/DL 6.1-8.3 ALBUMIN (test code = 2200) 4.3 G/DL 3.5-5.2 CALC GLOBULIN (test code = 2239) 2.7 G/DL 1.9-3.7 CALC A/G RATIO (test code = 2233) 1.6 RATIO 1.0-2.6 BILIRUBIN, TOTAL (test code = 2206) 0.5 MG/DL See_Comment [Automated me ssage] The system which generated this result transmitted reference range: <=1.2. The reference range was not used to interpret this result as normal/abnormal. ALKALINE PHOSPHATASE (test code = 2203) 74 U/L 40-123 AST (test code = 2217) 33 U/L 9-50 ALT (test code = 2218) 55 U/L 5-50 H LIPID [id number] 02:04:03* Test Item Value Reference Range Interpretation Comme nts CHOLESTEROL (test code = 2209) 180 MG/DL <200 TRIGLYCERIDES (test code = 223) 277 MG/DL <150 H HDL CHOLESTEROL (test code = 222) 56 MG/DL >39 CALC LDL CHOL (test code = 2236) 88 MG/DL <100 NOTE: CALCULATED LDL IS BASED ON JOVANNY-MCFARLANE METHOD WHICHINCLUDES ADJUSTABLE TRIGLYCERIDE:VLDL CHOLESTEROL RATIO.THIS FACTOR VARIES BY MEASURED TRIGLYCERIDE AND NON-HDLCHOLESTEROL CONCENTRATIONS WITH INCREASED CALCULATED LDL SEENIN HIGHER TRIGLYCERIDE OR LOWER NON-HDL SPECIMENS. FOR MOREINFORMATION, SEE CLIENT ANNOUNCEMENT AT [email or web address] /[email or web address] RISK RATIO LDL/HDL (test code = 223) 1.57 RATIO <3.55 UNLESS OTHERW ISE INDICATED, ALL TESTING PERFORMED [facility] [address] [place] [address] DIAPER MACHINE TENDER: YAYA DIOP M.D. IA NUMBER [id number] [facility] [place]. [id number] Notes Date/Time Note Provider Source 2023-06-16 13:37:59 9782-88-03B21:37:59F ormatting of this note might be different from the original.Form completed patient notified Leonora Garvin MA 06/16/2023 1:38 PM 02036-5Jpoonkcyz encounter ZbuyEV1042-59-75V04:38:13Telep tika encounter NoteTXT1.2.840.217653.1.13.104 .2.7.2.849482|[id number] lable for patient pzxz17431-9WbomCO332995138Zfcz telly Garvin [address] QjxnPtttvdfqaCbwlmrajwQAYX0568 885199BSWUFUSSITSJHFWGOSMKRS80 21-06-18T13:38:131.2.840.94295 0.1.72.3.15|1.2.840.145416.1.1 3.104.2.7.2.727879_[id number] Leonora Garvin [facility] 2023-06-16 11:24:45 4406-48-60Y69:24:45F ormatting of this note might be different from the original.Pt called checking the status of forms that were dropped off. Please advise. Call back number: [phone] signed by Bri Alfonso at 06/16/2023 11:25 AM JEO58966-3Ymordlwvm encounter FuaxUV4985-28-08U46:25:52Telep tika encounter NoteTXT1.2.840.189069.1.13.104 .2.7.2.575951|[id number] lable for patient gori56884-3WnzdAI17912959Pdyln sa R [address]MYAOVDHDUZOSUMKIKCFOZE65 21-06-18T11:25:521.2.840.11032 0.1.72.3.15|1.2.840.775447.1.1 3.104.2.7.2.727879_[id number] Bri Delvalle [facility] 2023-06-14 11:45:28 6913-29-58E57:45:28F ormatting of this note might be different from the original.Pt came to clinic requesting provider to fill out form Return to Work Authorization will leave in providers box. 91092-0Ehefhrmhx encounter CqnqSW7694-48-76M85:47:54Telep tika encounter NoteTXT1.2.840.991628.1.13.104 .2.7.2.873617|[id number] lable for patient jgya70022-9HuzcQK624179110Ugym eliu Russell [address]863VBAQZIZNGSIMERIETIBDNW47 21-06-16T11:47:541.2.840.06463 0.1.72.3.15|1.2.840.003816.1.1 3.104.2.7.2.727879_[id number] Tami Jaquez [facility] 2023-06-02 12:31:17 4566-04-79Q13:31:17F ormatting of this note might be different from the original.Spoke with spouse. States her and her , the patient, were in office today to get forms filled out for insurance. Spouse states the wrong dates were put on the form so her daughter is on the way to bring the forms back. Informed spouse that I will get forms and make note that, per spouse, the correct dates are 04/06/23-04/25/23 and take to ortho. Notified that the providers were gone for the weekend so the forms would not be reviewed until Monday. Patient spouse states that insurance needs forms back today. Informed spouse that I would speak with the MA in Ortho and see what needs to be done and we can give her a call back. 09399-1Jvdahxacf encounter SnmwIH5017-49-33M24:34:18Telep tika encounter NoteTXT1.2.840.913862.1.13.104 .2.7.2.083179|[id number] lable for patient guma62676-4FdnwGF721778429Eqdd lizeth Gilliland RN[address]TXTX[address] 533213ETLNBRBFXKPPEADSVRNWDU37 21-06-04T12:34:181.2.840.74698 0.1.72.3.15|1.2.840.332498.1.1 3.104.2.7.2.727879_[id number] Nuria Gilliland RN [facility] 2023-06-02 12:18:06 3481-60-66T13:18:06F ormatting of this note might be different from the original.Patients spouse phoned in asking to speak with management regarding paperwork when asked about forms requested to speak with manager sterile processing.Please advise at [phone] signed by Chan Johnston at 06/02/2023 12:19 PM SMR74171-1Noapnxyqb encounter ZbbjZZ7514-25-71S01:19:07Telep tika encounter NoteTXT1.2.840.655300.1.13.104 .2.7.2.022826|[id number] lable for patient wqks71648-2OflkOQ619480968Fojx stopher S Garcia[address]TX[address]GODCQAGWCCJROERXBTTKJL41 21-06-04T12:19:071.2.840.30334 0.1.72.3.15|1.2.840.716783.1.1 3.104.2.7.2.727879_[id number] Chan Johnston [facility] 2023-05-25 09:35:35 7009-51-93L64:35:35F ormatting of this note might be different from the original.Paper have been faxed and copy has been given to the patient 68719-8Bzhktkojw encounter UiciDS8701-51-63U40:36:17Telep tika encounter NoteTXT1.2.840.149763.1.13.104 .2.7.2.758676|[id number] lable for patient cjdh08832431Sjsjdhek Mireles[address] UkikFovwqorcqCvhwqsjifOWBU9687 [address]952JDQSLNPUSAJZUHJSODPLIP78 21-05-27T09:36:171.2.840.04073 0.1.72.3.15|1.2.840.681498.1.1 3.104.2.7.2.727879_[id number] Lorene Jeronimo [facility] 2023-05-22 14:22:05 2191-34-06P81:22:05F ormatting of this note might be different from the original.Received re-evaluation progress notes from [facility]. Placed in the providers box for review. 77137-8Vzfzgsrer encounter UoxkQJ9388-11-74E02:25:40Telep tika encounter NoteTXT1.2.840.463507.1.13.104 .2.7.2.310454|[id number] lable for patient hnnc558077199Kjjkahucu [address] 765467XWVYYYSGJTHLHVNXOUONXB37 21-05-24T14:25:401.2.840.34287 0.1.72.3.15|1.2.840.434880.1.1 3.104.2.7.2.727879_[id number] Qiana Walker [facility] 2023-05-22 11:55:55 9897-53-95X70:55:55F ormatting of this note might be different from the original.Pt daughter calling wanting to know why dr Vealsquez hasn't sent some papers to insurance. She isn't sure what paper were about she thinks its for worker comp. Would like someone from the clinic to call them back 65688-7Zxbwluwjt encounter DncaFY4847-74-51Y82:59:50Telep tika encounter NoteTXT1.2.840.161826.1.13.104 .2.7.2.379445|[id number] lable for patient qdco075741672Bvqax C Briggs[address]TX[address] 728883BEEAJRBMFTDHTEHFGFWVDJ90 21-05-24T11:59:501.2.840.76131 0.1.72.3.15|1.2.840.199834.1.1 3.104.2.7.2.727879_[id number] Munir Burks [facility]"
[2024-05-02] MEDS ORDERED: dexAMETHasone 10 MG/ML VIAL ONE (10:57)
[2024-05-02] MEDS ORDERED: KETOROLAC 30 MG/ML INJ ONE (10:57)
--- NOTE | 2024-05-02 11:16 | EDPHYS ---
Physician Documentation [facility] Name: Jabier Bright Age: 58 yrs Sex: Male : 1965 Arrival Date: 05/02/2024 Time: 10:37 Bed 12 Private MD: ED Physician Tian Ac HPI: 05/02 10:57 This 58 yrs old Male presents to ER via Ambulatory with complaints of Arm Pain rn - Elbow pain. 10:57 The patient or guardian complains of pain, that is acute. The complaints affect the rn right elbow. Onset: The symptoms/episode began/occurred 2 day(s) ago. Modifying factors: The symptoms are alleviated by remaining still, the symptoms are aggravated by movement. Severity of symptoms: At their worst the symptoms were moderate, in the emergency department the symptoms are unchanged. 10:57 The patient has not experienced similar symptoms in the past. Patient reports right rn elbow pain for the last 2 days. Denies injury. No fever or chills. No systemic symptoms. Patient does have history of gout and has had gout related problems in the right foot and knee.. Historical: - Allergies: 10:51 No Known Allergies; ll1 - PMHx: 10:51 Gout; Hypertension; ll1 - PSHx: 10:51 knee; ll1 - Immunization history:: Adult Immunizations up to date. - Infectious Disease History:: Denies. - Social history:: Smoking status: Patient denies any tobacco usage or history of. - Family history:: not pertinent. - Hospitalizations: : No recent hospitalization is reported. ROS: 10:57 Constitutional: Negative for fever, chills, and weight loss, Cardiovascular: Negative rn for chest pain, palpitations, and edema, Respiratory: Negative for shortness of breath, cough, wheezing, and pleuritic chest pain, MS/Extremity: Positive for right elbow pain Neuro: Negative for headache, weakness, numbness, tingling, and seizure, Exam: 10:57 Constitutional: This is a well developed, well nourished patient who is awake, alert, rn and in no acute distress. MS/ Extremity: Pulses equal, no cyanosis. Neurovascular intact. Mild painful range of motion right elbow. Mild erythema and warmth at right elbow. No open wounds. No streaking. Vital Signs: 10:50 BP 153 / 84; Pulse 103; Resp 16; Temp 97.1; Pulse Ox 97% ; Pain 3/10; ll1 11:44 BP 112 / 87; Pulse 85; Resp 17; Pulse Ox 97% on R/A; ll1 10:50 Pain Scale: Adult ll1 MDM: 10:43 Patient medically screened. rn 11:14 Differential diagnosis: Arthritis, gout. Data reviewed: vital signs, nurses notes, and rn as a result, I will discharge patient. Counseling: I had a detailed discussion with the patient and/or guardian regarding the historical points, exam findings, and any diagnostic results supporting the discharge/admit diagnosis, the need for outpatient follow up, to return to the emergency department if symptoms worsen or persist or if there are any questions or concerns that arise at home. Administered Medications: 11:30 Drug: Dexamethasone IM 10 mg IM once Route: IM; Site: left gluteus; ll1 11:44 Follow up: Response: No adverse reaction 1 11:30 Drug: Ketorolac IM 30 mg IM once Route: IM; Site: right gluteus; ll1 11:44 Follow up: Response: No adverse reaction 1 Disposition Summary: 05/02/24 11:16 Discharge Ordered Notes: Location: Home rn Problem: new rn Symptoms: have improved rn Condition: Stable rn Diagnosis - Gout, unspecified rn - Pain in right elbow rn Followup: rn - With: Private Physician - When: As needed - Reason: Recheck today's complaints, Re-evaluation by your physician Discharge Instructions: - Gout rn - Discharge Summary Sheet 1 Forms: - Medication Reconciliation Form rn - Antibiotic scrap metal burner - Prescription Opioid Use rn - Patient Portal Instructions rn - Leadership Thank You Letter rn - Work release form ll1 Prescriptions: - Tramadol 50 mg Oral tablet - take 1 tablet ORAL route every 8 hours as needed; 15 tablet; Refills: 0, rn Product Selection Permitted - Bactrim DS 800-160 mg Oral Tablet - take 1 tablet ORAL route every 12 hours for 10 days; 20 tablet; Refills: 0, rn Product Selection Permitted Signatures: Tian Ac MD MD rn Lewis, Lynsay, RN RN [facility]
--- NOTE | 2024-05-02 11:16 | ER ---
Nurse's Notes [facility] Name: Jabier Bright Age: 58 yrs Sex: Male : 1965 Arrival Date: 05/02/2024 Time: 10:37 Bed 12 Private MD: Diagnosis: Gout, unspecified;Pain in right elbow Presentation: 05/02 10:50 Chief complaint: Patient states: R elbow pain for 3 days. Coronavirus screen: Client ll1 denies travel out of the [place] in the last 14 days. At this time, the client does not indicate any symptoms associated with coronavirus-19. Ebola Screen: Patient denies travel to an Ebola-affected area in the 21 days before illness onset. Initial Sepsis Screen: Does the patient meet any 2 criteria? No. Patient's initial sepsis screen is negative. Does the patient have a suspected source of infection? No. Patient's initial sepsis screen is negative. Risk Assessment: Do you want to hurt yourself or someone else? Patient reports no desire to harm self or others. Onset of symptoms was April 30, 2024. 10:50 Method Of Arrival: Ambulatory ll1 10:50 Acuity: GLENIS 4 ll1 Triage Assessment: 10:52 General: Appears uncomfortable, Behavior is calm, cooperative, appropriate for age. ll1 Pain: Complains of pain in R elbow Quality of pain is described as aching. Neuro: No deficits noted. Cardiovascular: No deficits noted. Respiratory: No deficits noted. Musculoskeletal: Circulation, motion, and sensation intact. Capillary refill < 3 seconds, Reports pain in R elbow. Historical: - Allergies: 10:51 No Known Allergies; ll1 - PMHx: 10:51 Gout; Hypertension; ll1 - PSHx: 10:51 knee; ll1 - Immunization history:: Adult Immunizations up to date. - Infectious Disease History:: Denies. - Social history:: Smoking status: Patient denies any tobacco usage or history of. - Family history:: not pertinent. - Hospitalizations: : No recent hospitalization is reported. Screenin:55 [facility] ED Fall Risk Assessment (Adult) History of falling in the last 3 months, ll1 including since admission No falls in past 3 months (0 pts) Confusion or Disorientation No (0 pts) Intoxicated or Sedated No (0 pts) Impaired Gait No (0 pts) Mobility Assist Device Used No (0 pt) Altered Elimination No (0 pt) Score/Fall Risk Level 0 - 2 = Low Risk Maintained a safe environment, Hourly rounding (assess needs \T\ fall precautionary measures) done. Abuse screen: Denies threats or abuse. Nutritional screening: No deficits noted. Tuberculosis screening: No symptoms or risk factors identified. Assessment: 11:44 Reassessment: No changes from previously documented assessment. Patient and/or family ll1 updated on plan of care and expected duration. Pain level reassessed. Patient is alert, oriented x 3, equal unlabored respirations, skin warm/dry/pink. Vital Signs: 10:50 BP 153 / 84; Pulse 103; Resp 16; Temp 97.1; Pulse Ox 97% ; Pain 3/10; ll1 11:44 BP 112 / 87; Pulse 85; Resp 17; Pulse Ox 97% on R/A; ll1 10:50 Pain Scale: Adult ll1 ED Course: 10:41 Patient arrived in ED. ra3 10:43 Tian Ac MD is Attending Physician. rn 10:51 Triage completed. ll1 10:51 Arm band placed on. ll1 10:55 Radha Salcedo RN is Primary Nurse. ll1 10:55 Patient has correct armband on for positive identification. Bed in low position. ll1 Provided Education on: ER procedures and process. Cardiac monitoring not applicable on this patient. 11:44 No provider procedures requiring assistance completed. Patient did not have IV access ll1 during this emergency room visit. Administered Medications: 11:30 Drug: Dexamethasone IM 10 mg IM once Route: IM; Site: left gluteus; ll1 11:44 Follow up: Response: No adverse reaction ll1 11:30 Drug: Ketorolac IM 30 mg IM once Route: IM; Site: right gluteus; ll1 11:44 Follow up: Response: No adverse reaction 1 Medication: 11:45 VIS not applicable for this client. ll1 Outcome: 11:16 Discharge ordered by . rn 11:45 Discharged to home ambulatory, ll1 11:45 Condition: stable 11:45 Discharge instructions given to patient, Instructed on discharge instructions, follow up and referral plans. no drinking with medication, no driving heavy equipment, medication usage, Demonstrated understanding of instructions, follow-up care, medications, Prescriptions given X 2, 11:45 Patient left the ED. ll1 Signatures: Tian Ac MD MD rn Radha Salcedo RN RN ll1 Deena Louis ra3 Corrections: (The following items were deleted from the chart) 10:52 10:50 BP 153 / 84; Pulse 103bpm; Resp 16bpm; Pulse Ox 97%; Temp 97.1F; ll1 ll1
[2024-05-02 12:07] VITALS: BP 112/87; TEMP 97.1; O2SAT 97
== END 2024-05-02 11:45 | disposition home or self-care (01) ==
LOC: ER 10:37
DX: M10.9 Gout, unspecified (principal)
CPT/HCPCS: 96372; 99284; J1100